=== PATIENT | male | born 1950 | race Caucasian/White ===

== ENCOUNTER 2019-03-20 11:00 | Inpatient (IN) | payer OTHER, MEDICARE ==
[~2019-03-20] VITALS: Ht 182.9 cm; Wt 102.3 kg
[~2019-03-20 11:00] MED LIST: ALEN70 PO; CLOP75 PO; Fish Oil Conc1000 MG PO; GLIP5 PO; LEVSOD25 PO; Lipitor80 MG PO; PANT40 PO; Prinivil10 MG PO; TAMS.4ER PO
[2019-03-20 12:16] LABS: BASOPHILS ABSOLUTE AUTO 0.06 K/mm3 (0.00-0.23); BASOPHILS PERCENT AUTO 0 % (0-2); EOSINOPHILS ABSOLUTE AUTO 0.19 K/mm3 (0.00-0.68); EOSINOPHILS PERCENT AUTO 1 % (0-6); Hemoglobin 12.3 g/dL (13.5-17.5); IMMATURE GRAN ABSOLUTE AUTO 0.06 K/mm3 (0.00-0.10); IMMATURE GRAN PERCENT AUTO 0 % (0-1); LYMPHOCYTES PERCENT AUTO 8 % (21-46); MONOCYTES ABSOLUTE AUTO 0.66 K/mm3 (0.16-1.47); MONOCYTES PERCENT AUTO 5 % (4-13); Mean Corpuscular HGB 29.8 pg (26.0-34.0); Mean Corpuscular HGB Conc 32.4 g/dL (31.5-36.5); Mean Corpuscular Volume 92 fL (80-100); Mean Platelet Volume 9.5 fL (9.1-12.4); NEUTROPHILS ABSOLUTE AUTO 11.28 K/mm3 (1.96-9.15); NEUTROPHILS PERCENT AUTO 85 % (41-73); Platelet Count 254 K/mm3 (150-400); RDW Coefficient Variation 14.6 % (11.7-14.2); RDW Standard Deviation 50.1 fL (35.1-46.3); Red Blood Cell Count 4.13 M/mm3 (4.30-5.90); White Blood Cell Count 13.35 K/mm3 (4.00-11.30)
[2019-03-20 12:34] LABS: Alanine Aminotransfer (ALT/SGP 17 U/L (12-78); Albumin, Blood 3.4 g/dL (3.4-5.0); Albumin/Globulin Ratio 0.8 (0.8-1.8); Alk Phos 95 U/L (50-136); Anion Gap 10 mmol/L (6-16); Aspartate Aminotrans (AST/SGOT 12 U/L (12-37); Bilirubin, Total 0.4 mg/dL (0.1-1.0); Blood Urea Nitrogen 29 mg/dL (8-24); Bun/Creatinine Ratio 31.9 (12.0-20.0); CO2, Blood 22 mmol/L (21-32); Calcium, Blood 9.4 mg/dL (8.5-10.1); Chloride, Blood 106 mmol/L (98-108); Creatinine, Blood 0.91 mg/dL (0.60-1.20); Globulin, Blood 4.4 g/dL (2.2-4.0); Glomerular Filtration Rate >60 (60-); Glucose, Blood 171 mg/dL (70-99); Sodium, Blood 138 mmol/L (136-145); Total Protein, Blood 7.8 g/dL (6.4-8.2)
[2019-03-20] MEDS ORDERED: GABA300 PO (13:51)
[2019-03-20] MEDS ORDERED: AMIT50 PO (13:52)
[2019-03-20] MEDS ORDERED: Flonase 0.05% N16 GM (13:52)
[2019-03-20] MEDS ORDERED: ASMANEX220 MC3 INH (13:53)
[2019-03-20] MEDS ORDERED: TRIA15CR3 TOP (13:54)
--- NOTE | 2019-03-20 17:47 | NUR ---
SHIFT SUMMARY 1550 PT ARRIVED FROM ER. PIVOT TRANSFERED TO BED FROM STRETCHER. ALERT AND ORIENTED X3. C/O 8/10 RIGHT LEG PAIN, MEDICATED WITH PRN PAIN MEDS. LUNG SOUNDS COARSE THROUGHOUT, SINUS TACHYCARDIA WITH PACs ON TELEMETRY, RATE 110s. NEUROPATHY TO BLE. 1+ PITTING EDEMA TO RIGHT LEG. RIGHT LEG REDNESS NOTED TO ROY AND FOOT. SCABS NOTED TO RIGHT ANTERIOR ROY, RIGHT LATERAL FOOT, AND TOP OF RIGHT 2ND TOE. ULCER ON BOTTOM OF RIGHT GREAT TOE DRAINING SEROSANGUINOUS, DR. THOMAS IN ROOM, PT TO GO FOR SURGERY TOMORROW. PT NPO AFTER MIDNIGHT, HOLDING PLAVIX AT THIS TIME. WILL CONTINUE TO MONITOR AND REPORT OFF TO FIREARMS SALES ASSOCIATE RN.
[2019-03-20 22:55] LABS: Source, Urine Catheter
[2019-03-20 22:58] LABS: Bilirubin, Urine Neg (Neg); Blood, Urine Neg (Neg); Glucose Qualitative, Urine Neg (Neg); Ketones, Urine 1+ (Neg); Leukocyte Esterase, Urine Neg (Neg); Nitrite, Urine Neg (Neg); Protein, Urine 2+ (Neg); Specific Gravity, Urine 1.015 (1.003-1.022); Urobilinogen, Urine NORM (Normal)
[2019-03-20 22:59] LABS: Color, Urine Yellow (P-Yellow)
[2019-03-20 23:00] LABS: Appearance, Urine Clear (Clear)
[2019-03-20 23:03] LABS: Bacteria Mod /hpf; Red Blood Cells, Urine 0-2 /hpf (0-2); Squamous Epithelial Cells Not Seen /hpf (Few); White Blood Cells, Urine 0-2 /hpf (0-5)
[2019-03-21 03:37] LABS: BASOPHILS ABSOLUTE AUTO 0.05 K/mm3 (0.00-0.23); BASOPHILS PERCENT AUTO 1 % (0-2); EOSINOPHILS ABSOLUTE AUTO 0.52 K/mm3 (0.00-0.68); EOSINOPHILS PERCENT AUTO 7 % (0-6); Hematocrit 32.9 % (37.0-53.0); Hemoglobin 10.5 g/dL (13.5-17.5); IMMATURE GRAN ABSOLUTE AUTO 0.05 K/mm3 (0.00-0.10); IMMATURE GRAN PERCENT AUTO 1 % (0-1); LYMPHOCYTES ABSOLUTE AUTO 0.91 K/mm3 (0.84-5.20); LYMPHOCYTES PERCENT AUTO 12 % (21-46); MONOCYTES ABSOLUTE AUTO 0.47 K/mm3 (0.16-1.47); MONOCYTES PERCENT AUTO 6 % (4-13); Mean Corpuscular HGB 29.9 pg (26.0-34.0); Mean Corpuscular HGB Conc 31.9 g/dL (31.5-36.5); Mean Corpuscular Volume 94 fL (80-100); Mean Platelet Volume 9.4 fL (9.1-12.4); NEUTROPHILS ABSOLUTE AUTO 5.85 K/mm3 (1.96-9.15); NEUTROPHILS PERCENT AUTO 75 % (41-73); Platelet Count 206 K/mm3 (150-400); RDW Coefficient Variation 14.6 % (11.7-14.2); RDW Standard Deviation 49.9 fL (35.1-46.3); Red Blood Cell Count 3.51 M/mm3 (4.30-5.90); White Blood Cell Count 7.85 K/mm3 (4.00-11.30)
[2019-03-21 03:51] LABS: International Normalized Ratio 0.95; Prothrombin Time Results 10.1 Sec (9.7-11.5)
[2019-03-21 03:58] LABS: Alanine Aminotransfer (ALT/SGP 19 U/L (12-78); Albumin, Blood 2.7 g/dL (3.4-5.0); Albumin/Globulin Ratio 0.8 (0.8-1.8); Alk Phos 74 U/L (50-136); Anion Gap 8 mmol/L (6-16); Aspartate Aminotrans (AST/SGOT 19 U/L (12-37); Bilirubin, Total 0.5 mg/dL (0.1-1.0); Blood Urea Nitrogen 19 mg/dL (8-24); Bun/Creatinine Ratio 25.3 (12.0-20.0); CO2, Blood 22 mmol/L (21-32); Calcium, Blood 8.5 mg/dL (8.5-10.1); Chloride, Blood 108 mmol/L (98-108); Creatinine, Blood 0.75 mg/dL (0.60-1.20); Globulin, Blood 3.6 g/dL (2.2-4.0); Glomerular Filtration Rate >60 (60-); Glucose, Blood 124 mg/dL (70-99); Magnesium, Blood 1.5 mg/dL (1.6-2.4); Potassium, Blood 3.5 mmol/L (3.5-5.5); Sodium, Blood 138 mmol/L (136-145); Total Protein, Blood 6.3 g/dL (6.4-8.2)
--- NOTE | 2019-03-21 06:45 | NUR ---
Shift Summary No acute events to note overnight. Pain managed with dilauded better than fentanyl or tordol per pt. Medicated x2 this shift per orders. Pt NPO at midnight per orders for I&D today. VSS. Alert and oriented. calls appropriately. calls appropriately to make needs known. Uses urinal independantly at bedside. Day RN dressed RLE wound, dressing remains CDI this shift. No acute declines noted, no events on tele, no changes from initial shift assessment. Will continue to monitor until report off to day rn.
--- NOTE | 2019-03-21 08:48 | NUR ---
AM NOTE. ASSUMED CARE OF PT APROX 0700, PT IS A&Ox4 AND CURRENTLY NBW ON THE R FOOT. PT HAS BEEN NPO FOR I&D AND POSS AMPUTATION ON THE RIGHT FOOT. PT HAS BEEN HYPERTENSIVE, PT MEDICATED FOR PAIN 9/10 PAIN IN HIS R FOOT AND BACK. PT'S R FOOT WRAPPED IN KRILIX, IT IS NOTED THERE IS BLOOD AND SEROSANGUINEOUS DRAINAGE, DRESSING IS CHANGED. PER THE PT AND HIS SISTER AT THE BEDSIDE THE REDNESS OF THE RIGHT FOOT AND LEFT ROY HAS GREATLY DECREASED FROM YESTERDAY. L/S COARSE T/O, PT IS CEDS WITH NO PLANS TO QUIT PER THE PT. THERE IS 1+ EDEMA NOTED TO THE PT'S BLE, PEDAL PULSES ARE FAINT BILATERALLY. PT IS VERY ANXIOUS ABOUT THIS PROCEDURE, EDUCATION AND COMFORT PROVIDED TO THE PT. CALL LIGHT IN REACH, BED IS LOCKED AND LOW WILL CONTINUE TO MONITOR.
--- NOTE | 2019-03-21 11:04 | NUR ---
History, Chart, Medications and Allergies reviewed before start of procedure.Lungs clear T/O to Auscultation. Patient confirms NPO status and agrees with scheduled surgery. PROVIDED OR 1 WITH 1200 SCHEDULED ZOSYN. REPORT TO RAMSEY CLAYTON RN IN OR 1. SISTER PHONE NUMBER TO FRON OF CHART FOR DR THOMAS. ALL BELONINGS LEFT IN PCU 13.
--- NOTE | 2019-03-21 11:25 | NUR ---
03/21/19 Seb5 Naomi Nguyen PT ON SCHEDULED ANTIBIOTICS
--- NOTE | 2019-03-21 17:39 | NUR ---
SHIFT SUMMARY. PT RETURNED FROM SURGERY AT 1230, PT'S POST OP VS STABLE. PT C/O OF SEVERE PAIN TO THE R LEG/FOOT, PT WAS MEDICATED PER EMAR. PT IS NWB ON THE R LEG. PER REPORT FROM THE PHARMACY SCHEDULER DRESSING IS TO BE CHANGED BY THE PROVIDER ONLY. PT HAS BEEN VOIDING USING THE URINAL IND IN BED. PT IS MEDICAL STATUS, REPORT WAS GIVEN TO RECEVING RN. CALL LIGHT IN REACH, BED IS LOCKED AND LOW WILL CONTINUE TO MONITOR UNTIL PT IS TRANSFERED TO MEDICAL FLOOR.
--- NOTE | 2019-03-21 19:28 | NUR ---
PT ARRIVED TO THE MEDIVCAL FLOOR FROM THE PCU AT 181, A/OX3, PLEASANT AND COOPERATIVE, THE PT WAS MEDICATED FOR PAIN PER HIS REQUEST ON ARRIVAL TO THE ROOM, THE PT APPEARS TO BE BREATHING EASILY ON RA, THE HAS A C/D/I DRESSING TO THR RIGHT LE, PT WAS ORIENTED TO THE ROOM LAYOUT AND CALL SYSTEM, CALL LIGHT IN REACH
[2019-03-22 02:19] LABS: BASOPHILS ABSOLUTE AUTO 0.02 K/mm3 (0.00-0.23); BASOPHILS PERCENT AUTO 0 % (0-2); EOSINOPHILS ABSOLUTE AUTO 0.03 K/mm3 (0.00-0.68); EOSINOPHILS PERCENT AUTO 0 % (0-6); Hemoglobin 9.6 g/dL (13.5-17.5); IMMATURE GRAN ABSOLUTE AUTO 0.05 K/mm3 (0.00-0.10); IMMATURE GRAN PERCENT AUTO 1 % (0-1); LYMPHOCYTES PERCENT AUTO 9 % (21-46); MONOCYTES ABSOLUTE AUTO 0.43 K/mm3 (0.16-1.47); MONOCYTES PERCENT AUTO 5 % (4-13); Mean Corpuscular HGB 30.2 pg (26.0-34.0); Mean Corpuscular Volume 94 fL (80-100); Mean Platelet Volume 9.5 fL (9.1-12.4); NEUTROPHILS ABSOLUTE AUTO 6.78 K/mm3 (1.96-9.15); NEUTROPHILS PERCENT AUTO 85 % (41-73); Platelet Count 191 K/mm3 (150-400); RDW Coefficient Variation 14.5 % (11.7-14.2); RDW Standard Deviation 50.4 fL (35.1-46.3); Red Blood Cell Count 3.18 M/mm3 (4.30-5.90); White Blood Cell Count 8.01 K/mm3 (4.00-11.30)
[2019-03-22 02:36] LABS: Alanine Aminotransfer (ALT/SGP 30 U/L (12-78); Albumin, Blood 2.6 g/dL (3.4-5.0); Albumin/Globulin Ratio 0.8 (0.8-1.8); Alk Phos 74 U/L (50-136); Anion Gap 7 mmol/L (6-16); Aspartate Aminotrans (AST/SGOT 32 U/L (12-37); Bilirubin, Total 0.1 mg/dL (0.1-1.0); Blood Urea Nitrogen 18 mg/dL (8-24); Bun/Creatinine Ratio 21.1 (12.0-20.0); CO2, Blood 22 mmol/L (21-32); Calcium, Blood 8.3 mg/dL (8.5-10.1); Chloride, Blood 108 mmol/L (98-108); Creatinine, Blood 0.85 mg/dL (0.60-1.20); Globulin, Blood 3.4 g/dL (2.2-4.0); Glomerular Filtration Rate >60 (60-); Glucose, Blood 149 mg/dL (70-99); Potassium, Blood 4.1 mmol/L (3.5-5.5); Sodium, Blood 137 mmol/L (136-145); Vancomycin, Trough 15.5 ug/mL (5.0-10.0)
--- NOTE | 2019-03-22 05:54 | NUR ---
SHIFT SUMMARY: PATIENT CONTINUES TO REPORT R FOOT PAIN 6-12/23 WITH A HISTORY OF NEUROPATHY AND INSOMNIA IT WAS NOTED THAT MANY HOME MEDS HAVE NOT BEEN ORDERED INCLUDING NEURONTIN, ELAVIL. АННА HICKS CAN INSPECTOR WAS NOTIFIED AND ORDERS FOR ALL HOME MEDS AND MELATONIN WERE OBTAINED AND GIVEN. PATIENT HAS HAD FAIR EFFECT FROM IV DILAUDID AND TORADOL PRN. PATIENT IS SLEEPING BETWEEN DOSES OF PRN PAIN MEDICATION, FAIR EFFECT FROM MELATONIN. VS ARE STABLE, DRSG TO RIGHT FOOT IS CLEAR DRY AND INTACT.
--- NOTE | 2019-03-22 18:06 | NUR ---
PATIENT IS ALERT AND ORIENTED AND COOPERATIVE WITH CARE. THE PROCEDURE NURSE CHANGED THE DRESSING ON HIS RLE TODAY. HE COMPLAINS OF PAIN ON HIS RIGHT ROY. IV FLUIDS AND IV ANTIBIOTICS WERE DC'D TODAY. HE WORKED WITH PT TODAY, HE CAN PIVOT ON HIS LEFT FOOT TO TRANSFER. 2PA WITH GAITBELT AND FWW. PATIENT NOTICED HE HAS BEEN SLEEEPING MOST OF THE AFTERNOON. IV TORADOL WAS GIVEN AROUND 1400. HIS VITAL ARE STABLE. HE IS AWAKE IN THE RECLINER FOR DINNER NOW. WILL CONTINUE TO MONITOR.
--- NOTE | 2019-03-23 07:43 | NUR ---
SHIFT SUMMARY: BP IS ELEVATED BUT PATIENT IS ASYMPTOMATIC, POSSIBLY RELATED TO PAIN. PAIN IS WELL CONTROLED WITH ORAL NORCO 1 TAB GIVEN TWICE, PATIENT SLEP THROUGH THE NIGHT. THIS AM PATIENT IS REPORTING A BURNING PAIN ON R ROY, ICE IS APPLIED AND AM DOSE OF NEURONTIN IS DUE SOON. PATIENT IS DOING WELL WITH TRANSFERS TO CHAIR AND ASSIST OF TWO, STAND AND PIVOT.
[2019-03-23] MEDS ORDERED: AMOCLA500 PO (11:32)
[2019-03-23] MEDS ORDERED: Docusate Sodiu1 EACH PO (11:34)
[2019-03-23] MEDS ORDERED: Humalog Mi100 UNIT/4 SC (11:35)
[2019-03-23] MEDS ORDERED: INSULANPEN SC (11:37)
[2019-03-23] MEDS ORDERED: Vsl#3 Capsule1 EACH PO (11:37)
--- NOTE | 2019-03-23 14:23 | NUR ---
PATIENT D/C'S VIA W/C TRANSPORT TO [facility]. REPORT CALLED TO NURSE BRITTANEY. PACKET GIVEN TO GOVERNMENT RELATIONS ANALYST. PATIENT DENIES ANY QUESTIONS OR CONCERNS.
== END 2019-03-23 14:22 | DRG 854 ==
LOC: ER 11:00 → PCU 15:17 → MEDS 15:17 → PCU 15:48 → MEDS 03-21 18:13
PROVIDERS: Emergency Medicine; Internal Medicine; Nurse Practitioner Acute Care; Podiatrist Foot & Ankle Surgery; ADMIT Internal Medicine
PROC: 0Y6P0Z0 Detachment at Right 1st Toe, Complete, Open Approach (ICD-10-PCS; principal; 2019-03-21 10:30)
DX: A41.9 Sepsis, unspecified organism (principal); E11.52 Type 2 diabetes mellitus with diabetic peripheral angiopathy with gangrene; I96 Gangrene, not elsewhere classified; L03.115 Cellulitis of right lower limb; E11.621 Type 2 diabetes mellitus with foot ulcer; L97.519 Non-pressure chronic ulcer of other part of right foot with unspecified severity; Z79.4 Long term (current) use of insulin; D63.8 Anemia in other chronic diseases classified elsewhere; I10 Essential (primary) hypertension; E03.9 Hypothyroidism, unspecified; K21.9 Gastro-esophageal reflux disease without esophagitis; E66.01 Morbid (severe) obesity due to excess calories; Z68.32 Body mass index [BMI] 32.0-32.9, adult; N40.0 Benign prostatic hyperplasia without lower urinary tract symptoms; Z66 Do not resuscitate
CPT/HCPCS: 36415; 73600; 73620; 80053; 80202; 81001; 82947; 83036; 83605; 83735; 83880; 85025; 85610; 85651; 86140; 87040; 87070; 87071; 87075; 87076; 87077; 87086; 87185; 87205; 88305; 90686; 93005; 93010; 94640; 94760; 96361; 96365; 96367; 96375; 96376; 97162; 97530; 99285-25; A9270-GY; G0008; J1100; J1170; J1885; J2185; J2250; J2405; J2543; J2704; J3010; J3370; J7030; J7050; J7120

== ENCOUNTER 2019-04-08 20:17 | Emergency (ER) | payer OTHER, MEDICARE ==
[~2019-04-08] VITALS: Ht 182.9 cm; Wt 104.3 kg
[~2019-04-08 20:17] MED LIST changes: +AMIT50 PO; +AMOCLA500 PO; +ASMANEX220 MC3 INH; +Docusate Sodiu1 EACH PO; +Flonase 0.05% N16 GM; +GABA300 PO; +Humalog Mi100 UNIT/4 SC; +INSULANPEN SC; +TRIA15CR3 TOP; +Vsl#3 Capsule1 EACH PO
[2019-04-08 20:53] LABS: BASOPHILS ABSOLUTE AUTO 0.11 K/mm3 (0.00-0.23); BASOPHILS PERCENT AUTO 1 % (0-2); EOSINOPHILS ABSOLUTE AUTO 0.41 K/mm3 (0.00-0.68); EOSINOPHILS PERCENT AUTO 4 % (0-6); Hematocrit 41.8 % (37.0-53.0); Hemoglobin 13.3 g/dL (13.5-17.5); IMMATURE GRAN ABSOLUTE AUTO 0.11 K/mm3 (0.00-0.10); IMMATURE GRAN PERCENT AUTO 1 % (0-1); LYMPHOCYTES ABSOLUTE AUTO 2.07 K/mm3 (0.84-5.20); LYMPHOCYTES PERCENT AUTO 19 % (21-46); MONOCYTES ABSOLUTE AUTO 0.61 K/mm3 (0.16-1.47); MONOCYTES PERCENT AUTO 6 % (4-13); Mean Corpuscular HGB 29.7 pg (26.0-34.0); Mean Corpuscular HGB Conc 31.8 g/dL (31.5-36.5); Mean Corpuscular Volume 93 fL (80-100); Mean Platelet Volume 9.9 fL (9.1-12.4); NEUTROPHILS ABSOLUTE AUTO 7.66 K/mm3 (1.96-9.15); NEUTROPHILS PERCENT AUTO 70 % (41-73); Platelet Count 270 K/mm3 (150-400); RDW Coefficient Variation 14.3 % (11.7-14.2); RDW Standard Deviation 49.2 fL (35.1-46.3); Red Blood Cell Count 4.48 M/mm3 (4.30-5.90); White Blood Cell Count 10.97 K/mm3 (4.00-11.30)
[2019-04-08 21:06] LABS: Alanine Aminotransfer (ALT/SGP 35 U/L (12-78); Albumin, Blood 4.1 g/dL (3.4-5.0); Albumin/Globulin Ratio 0.9 (0.8-1.8); Alk Phos 131 U/L (50-136); Anion Gap 9 mmol/L (6-16); Aspartate Aminotrans (AST/SGOT 25 U/L (12-37); Bilirubin, Total 0.2 mg/dL (0.1-1.0); Blood Urea Nitrogen 23 mg/dL (8-24); Bun/Creatinine Ratio 23.7 (12.0-20.0); CO2, Blood 20 mmol/L (21-32); Calcium, Blood 8.9 mg/dL (8.5-10.1); Chloride, Blood 110 mmol/L (98-108); Creatinine, Blood 0.97 mg/dL (0.60-1.20); Globulin, Blood 4.4 g/dL (2.2-4.0); Glomerular Filtration Rate >60 (60-); Glucose, Blood 104 mg/dL (70-99); Potassium, Blood 4.6 mmol/L (3.5-5.5); Sodium, Blood 139 mmol/L (136-145); Total Protein, Blood 8.5 g/dL (6.4-8.2)
[2019-04-08] MEDS ORDERED: CEPH500 PO (21:36)
== END 2019-04-08 22:39 | disposition home or self-care (01) ==
LOC: ER 20:17
PROVIDERS: Emergency Medicine
DX: L97.519 Non-pressure chronic ulcer of other part of right foot with unspecified severity (principal); I99.8 Other disorder of circulatory system; E11.9 Type 2 diabetes mellitus without complications; I10 Essential (primary) hypertension; Z89.411 Acquired absence of right great toe; Z91.14 Patient's other noncompliance with medication regimen; Z79.899 Other long term (current) drug therapy; Z79.02 Long term (current) use of antithrombotics/antiplatelets; Z79.4 Long term (current) use of insulin
CPT/HCPCS: 36415; 80053; 85025; 99283; A9270

== ENCOUNTER 2019-07-17 12:22 | Inpatient (IN) | payer OTHER, MEDICARE ==
[~2019-07-17] VITALS: Ht 185.4 cm; Wt 110.4 kg
[~2019-07-17 12:22] MED LIST changes: -ASMANEX220 MC3 INH; +CEPH500 PO
[2019-07-17] MEDS ORDERED: Calcium Carbon650 MG PO (12:45)
[2019-07-17] MEDS ORDERED: HYDRA25 PO (12:49)
[2019-07-17] MEDS ORDERED: ZOLOFT25 MG PO (12:49)
[2019-07-17] MEDS ORDERED: METO50ER PO (12:49)
[2019-07-17] MEDS ORDERED: THERA-D2000 UNIT PO (12:50)
[2019-07-17 13:11] LABS: BASOPHILS ABSOLUTE AUTO 0.07 K/mm3 (0.00-0.23); BASOPHILS PERCENT AUTO 1 % (0-2); EOSINOPHILS ABSOLUTE AUTO 0.52 K/mm3 (0.00-0.68); EOSINOPHILS PERCENT AUTO 7 % (0-6); Hematocrit 27.2 % (37.0-53.0); Hemoglobin 8.4 g/dL (13.5-17.5); IMMATURE GRAN PERCENT AUTO 1 % (0-1); LYMPHOCYTES PERCENT AUTO 17 % (21-46); MONOCYTES PERCENT AUTO 5 % (4-13); Mean Corpuscular HGB 30.7 pg (26.0-34.0); Mean Corpuscular HGB Conc 30.9 g/dL (31.5-36.5); Mean Corpuscular Volume 99 fL (80-100); Mean Platelet Volume 10.4 fL (9.1-12.4); NEUTROPHILS ABSOLUTE AUTO 5.09 K/mm3 (1.96-9.15); NEUTROPHILS PERCENT AUTO 68 % (41-73); Platelet Count 243 K/mm3 (150-400); RDW Coefficient Variation 15.5 % (11.7-14.2); RDW Standard Deviation 55.5 fL (35.1-46.3); Red Blood Cell Count 2.74 M/mm3 (4.30-5.90); White Blood Cell Count 7.48 K/mm3 (4.00-11.30)
[2019-07-17 13:29] LABS: Alanine Aminotransfer (ALT/SGP 63 U/L (12-78); Albumin, Blood 3.6 g/dL (3.4-5.0); Alk Phos 100 U/L (50-136); Anion Gap 8 mmol/L (6-16); Aspartate Aminotrans (AST/SGOT 35 U/L (12-37); Bilirubin, Total <0.1 mg/dL (0.1-1.0); Blood Urea Nitrogen 51 mg/dL (8-24); Bun/Creatinine Ratio 26.7 (12.0-20.0); CO2, Blood 20 mmol/L (21-32); Calcium, Blood 9.2 mg/dL (8.5-10.1); Chloride, Blood 107 mmol/L (98-108); Creatinine, Blood 1.91 mg/dL (0.60-1.20); Globulin, Blood 3.6 g/dL (2.2-4.0); Glomerular Filtration Rate 37 (60-); Glucose, Blood 131 mg/dL (70-99); Potassium, Blood 5.1 mmol/L (3.5-5.5); Sodium, Blood 135 mmol/L (136-145); Total Protein, Blood 7.2 g/dL (6.4-8.2)
[2019-07-17 14:40] LABS: Source, Urine Clean Catch
[2019-07-17 14:44] LABS: Bilirubin, Urine Neg (Neg); Blood, Urine Neg (Neg); Glucose Qualitative, Urine Neg (Neg); Ketones, Urine Neg (Neg); Leukocyte Esterase, Urine Neg (Neg); Nitrite, Urine Neg (Neg); Protein, Urine Neg (Neg); Urobilinogen, Urine NORM (Normal)
[2019-07-17 14:59] LABS: Appearance, Urine Clear (Clear); Color, Urine Yellow (P-Yellow)
[2019-07-17] MEDS ORDERED: ASMANEX HFA13 G2 INH (17:34)
[2019-07-17] MEDS ORDERED: HYDHCL25 PO (17:35)
[2019-07-17] MEDS ORDERED: ANTI-ITCH LOTI222 ML TOP (17:36)
[2019-07-17 19:02] LABS: Hematocrit 26.9 % (37.0-53.0); Hemoglobin 8.2 g/dL (13.5-17.5)
--- NOTE | 2019-07-18 01:26 | NUR ---
68 YR OLD MALE ADMITTED TO THE FLOOR FROM THE ED EARLIER WITH DX OF AKD. HX DM WITH RIGHT GREAT TOE AMPUTATION AND 2ND TOE OF RIGHT FOOT SWOLLEN AND OPEN. NO NOTED DRAINAGE. BANDAID APPLIED TO AREA. WEAK, AMBULATES WITH WALKER. ALERT AND ORINETED. WAS ANXIOUS WHEN HE HAD MISPLACED HIS TELEPHONE AND IT WAS FOUND IN LINEN FROM TRANSFER GURSTAPLETON. IVF OF LR INFUSING - SEE MAR FOR DETAILS. VOICED PAIN OF BACK AND NECK, DRYWALL FOREMAN NOTIFIED AND ONE TIME DOSE OF ULTRAM GIVEN. NO COMPLAINTS AT THIS TIME. ORIENTED TO CALL LIGHT USE. CALL LIGHT IN REACH.
--- NOTE | 2019-07-18 05:08 | NUR ---
PT AWAKE AT INTERVALS. IVF OF LR CONTINUES TO INFUSE ORDERED. PT VOICED HX TAKING NEURONTIN 900 MG PO TID. MD NOTIFIED AND MED ORDERED. SEE MAR FOR DETAILS. CALL LIGHT IN REACH.
[2019-07-18 06:01] LABS: Hematocrit 25.9 % (37.0-53.0); Hemoglobin 7.8 g/dL (13.5-17.5); Mean Corpuscular HGB 29.7 pg (26.0-34.0); Mean Corpuscular HGB Conc 30.1 g/dL (31.5-36.5); Mean Corpuscular Volume 99 fL (80-100); Mean Platelet Volume 10.4 fL (9.1-12.4); Platelet Count 221 K/mm3 (150-400); RDW Standard Deviation 54.4 fL (35.1-46.3); Red Blood Cell Count 2.63 M/mm3 (4.30-5.90); White Blood Cell Count 6.53 K/mm3 (4.00-11.30)
[2019-07-18 06:21] LABS: Percent Saturation 19.5 % (20.0-50.0)
[2019-07-18 06:22] LABS: Anion Gap 6 mmol/L (6-16); Blood Urea Nitrogen 31 mg/dL (8-24); CO2, Blood 17 mmol/L (21-32); Calcium, Blood 8.3 mg/dL (8.5-10.1); Chloride, Blood 115 mmol/L (98-108); Creatinine, Blood 1.07 mg/dL (0.60-1.20); Glomerular Filtration Rate >60 (60-); Glucose, Blood 145 mg/dL (70-99); Potassium, Blood 5.7 mmol/L (3.5-5.5); Sodium, Blood 138 mmol/L (136-145)
[2019-07-18 13:13] LABS: Hematocrit 27.2 % (37.0-53.0); Hemoglobin 8.4 g/dL (13.5-17.5); Mean Corpuscular HGB 30.1 pg (26.0-34.0); Mean Corpuscular HGB Conc 30.9 g/dL (31.5-36.5); Mean Corpuscular Volume 98 fL (80-100); Platelet Count 228 K/mm3 (150-400); RDW Coefficient Variation 15.1 % (11.7-14.2); RDW Standard Deviation 53.9 fL (35.1-46.3); Red Blood Cell Count 2.79 M/mm3 (4.30-5.90); White Blood Cell Count 7.85 K/mm3 (4.00-11.30)
--- NOTE | 2019-07-18 19:10 | NUR ---
PT. LYING QUIETLY AT THIS TIME NO COMPLAINTS AT THIS TIME. PUT EGGCRATE ON PT'S BED BECAUSE HE SAID IT MADE HIS BACK HURT. PT. SAID THE PAIN MED WE ARE GIVING HIS DOESN'T WORK AND ITS A PLACEBO. WHEN ASKED WHAT HE TAKES AT HOME HE SAID TYLENOL BUT HE'S IN THE HOSPITAL NOW AND WANTS SOME GOOD PAIN MEDS, WHEN ASKED WHAT HE WANTED HE STATED"MORPHINE".
[2019-07-18 20:22] LABS: Hematocrit 28.3 % (37.0-53.0); Hemoglobin 8.6 g/dL (13.5-17.5); Mean Corpuscular HGB 30.3 pg (26.0-34.0); Mean Corpuscular HGB Conc 30.4 g/dL (31.5-36.5); Mean Corpuscular Volume 100 fL (80-100); Mean Platelet Volume 9.9 fL (9.1-12.4); Platelet Count 227 K/mm3 (150-400); RDW Standard Deviation 54.5 fL (35.1-46.3); Red Blood Cell Count 2.84 M/mm3 (4.30-5.90); White Blood Cell Count 7.23 K/mm3 (4.00-11.30)
--- NOTE | 2019-07-19 05:01 | NUR ---
SHIFT SUMMARY PT HAS HAD NO ACUTE CHANGES THIS SHIFT, ONLY COMPLAINT IS ABOUT CLEARS DIET, VSS, PT SLEEPING AT THIS TIME, CALL LIGHT IN REACH, WILL CONT TO MONITOR UNTIL REPORT GIVEN TO DAY RN.
[2019-07-19 05:15] LABS: BASOPHILS ABSOLUTE AUTO 0.05 K/mm3 (0.00-0.23); BASOPHILS PERCENT AUTO 1 % (0-2); EOSINOPHILS ABSOLUTE AUTO 0.51 K/mm3 (0.00-0.68); EOSINOPHILS PERCENT AUTO 8 % (0-6); Hematocrit 26.4 % (37.0-53.0); IMMATURE GRAN ABSOLUTE AUTO 0.06 K/mm3 (0.00-0.10); IMMATURE GRAN PERCENT AUTO 1 % (0-1); LYMPHOCYTES ABSOLUTE AUTO 1.72 K/mm3 (0.84-5.20); LYMPHOCYTES PERCENT AUTO 28 % (21-46); MONOCYTES ABSOLUTE AUTO 0.41 K/mm3 (0.16-1.47); MONOCYTES PERCENT AUTO 7 % (4-13); Mean Corpuscular HGB 29.9 pg (26.0-34.0); Mean Corpuscular HGB Conc 30.3 g/dL (31.5-36.5); Mean Corpuscular Volume 99 fL (80-100); Mean Platelet Volume 10.2 fL (9.1-12.4); NEUTROPHILS ABSOLUTE AUTO 3.37 K/mm3 (1.96-9.15); NEUTROPHILS PERCENT AUTO 55 % (41-73); Platelet Count 204 K/mm3 (150-400); RDW Coefficient Variation 15.1 % (11.7-14.2); RDW Standard Deviation 54.1 fL (35.1-46.3); Red Blood Cell Count 2.68 M/mm3 (4.30-5.90); White Blood Cell Count 6.12 K/mm3 (4.00-11.30)
[2019-07-19 05:43] LABS: Anion Gap 5 mmol/L (6-16); Blood Urea Nitrogen 22 mg/dL (8-24); Bun/Creatinine Ratio 23.6 (12.0-20.0); CO2, Blood 19 mmol/L (21-32); Calcium, Blood 8.7 mg/dL (8.5-10.1); Chloride, Blood 114 mmol/L (98-108); Creatinine, Blood 0.93 mg/dL (0.60-1.20); Glomerular Filtration Rate >60 (60-); Glucose, Blood 102 mg/dL (70-99); Sodium, Blood 138 mmol/L (136-145)
[2019-07-19 05:45] LABS: Potassium, Blood 6.3 mmol/L (3.5-5.5)
[2019-07-19 10:28] LABS: Anion Gap 4 mmol/L (6-16); Blood Urea Nitrogen 20 mg/dL (8-24); Bun/Creatinine Ratio 22.9 (12.0-20.0); CO2, Blood 21 mmol/L (21-32); Calcium, Blood 8.8 mg/dL (8.5-10.1); Chloride, Blood 112 mmol/L (98-108); Creatinine, Blood 0.87 mg/dL (0.60-1.20); Glomerular Filtration Rate >60 (60-); Glucose, Blood 152 mg/dL (70-99); Potassium, Blood 5.3 mmol/L (3.5-5.5); Sodium, Blood 137 mmol/L (136-145)
--- NOTE | 2019-07-19 11:32 | NUR ---
07/19/19 1132 Neisha Horan History, Chart, Medications and Allergies reviewed before start of procedure. PATIENT CONFIRMS NPO STATUS AND AGREES WITH SCHEDULED PROCEDURE. MONITOR INTACT WITH CONTINUOUS PULSE OXIMETRY AND INTERMITTENT BP. O2 VIA N/C INTACT THROUGHOUT SEDATION/PROCEDURE. 3-LEAD EKG REVIEWED WITH PHYSICIAN PRIOR TO START OF PROCEDURE. Bite Block Placed. PATIENT DETERMINED TO BE ASA APPROPRIATE FOR PROPOFOL SEDATION PRIOR TO START OF PROCEDURE BY DR. TRIPLETT.
--- NOTE | 2019-07-19 12:23 | NUR ---
"DAY SURGERY RN | REPORT TO JOSEPH RING AT [id number]"
--- NOTE | 2019-07-19 17:35 | NUR ---
SUMMARY PT SITTING UP IN BED WATCHING TV, PT HAD AN UPPER ENDOSCOPY TODAY, MELISSA WELL, PT INDEPENDENT IN THE ROOM, MED PER EMAR FOR C/O PAIN, VSS, HOPEFUL TO DC HOME IN AM, WILL CONT TO MONITOR
[2019-07-20 05:56] LABS: BASOPHILS ABSOLUTE AUTO 0.05 K/mm3 (0.00-0.23); BASOPHILS PERCENT AUTO 1 % (0-2); EOSINOPHILS ABSOLUTE AUTO 0.53 K/mm3 (0.00-0.68); EOSINOPHILS PERCENT AUTO 9 % (0-6); Hematocrit 27.1 % (37.0-53.0); Hemoglobin 8.4 g/dL (13.5-17.5); IMMATURE GRAN ABSOLUTE AUTO 0.07 K/mm3 (0.00-0.10); IMMATURE GRAN PERCENT AUTO 1 % (0-1); LYMPHOCYTES ABSOLUTE AUTO 1.82 K/mm3 (0.84-5.20); LYMPHOCYTES PERCENT AUTO 30 % (21-46); MONOCYTES ABSOLUTE AUTO 0.34 K/mm3 (0.16-1.47); MONOCYTES PERCENT AUTO 6 % (4-13); Mean Corpuscular HGB 29.9 pg (26.0-34.0); Mean Platelet Volume 10.3 fL (9.1-12.4); NEUTROPHILS ABSOLUTE AUTO 3.33 K/mm3 (1.96-9.15); NEUTROPHILS PERCENT AUTO 54 % (41-73); Platelet Count 205 K/mm3 (150-400); RDW Coefficient Variation 14.6 % (11.7-14.2); RDW Standard Deviation 50.7 fL (35.1-46.3); Red Blood Cell Count 2.81 M/mm3 (4.30-5.90); White Blood Cell Count 6.14 K/mm3 (4.00-11.30)
[2019-07-20 05:57] LABS: Mean Corpuscular Volume 96 fL (80-100)
--- NOTE | 2019-07-20 06:21 | NUR ---
SHIFT SUMMARY PT HAS HAD NO ACUTE CHANGES THIS SHIFT, MEDICATED 2X FOR PAIN, NO OTHER C/O ANY KIND, PT SLEEPING AT THIS TIME, CALL LIGHT IN REACH, WILL CONT TO MONITOR UNTIL REPORT GIVEN TO DAY RN
[2019-07-20 06:24] LABS: Anion Gap 5 mmol/L (6-16); Blood Urea Nitrogen 23 mg/dL (8-24); Bun/Creatinine Ratio 23.4 (12.0-20.0); CO2, Blood 21 mmol/L (21-32); Chloride, Blood 111 mmol/L (98-108); Creatinine, Blood 0.98 mg/dL (0.60-1.20); Glomerular Filtration Rate >60 (60-); Glucose, Blood 120 mg/dL (70-99); Sodium, Blood 137 mmol/L (136-145)
[2019-07-20 11:59] LABS: Anion Gap 7 mmol/L (6-16); Blood Urea Nitrogen 26 mg/dL (8-24); Bun/Creatinine Ratio 23.2 (12.0-20.0); CO2, Blood 20 mmol/L (21-32); Calcium, Blood 9.3 mg/dL (8.5-10.1); Chloride, Blood 110 mmol/L (98-108); Creatinine, Blood 1.12 mg/dL (0.60-1.20); Glomerular Filtration Rate >60 (60-); Glucose, Blood 138 mg/dL (70-99); Potassium, Blood 5.7 mmol/L (3.5-5.5); Sodium, Blood 137 mmol/L (136-145)
--- NOTE | 2019-07-20 17:26 | NUR ---
SUMMARY PT SITTING UP IN BED WATCHING TV, PT HAS BEEN PLEASANT AND COOPERATIVE WITH CARE T/O THE DAY, INDEPENDENT IN THE ROOM, NO S/S GI BLEEDING, MED PER EMAR FOR PAIN, VSS, NO ACUTE CHANGES, WILL CONT TO MONITOR
--- NOTE | 2019-07-21 04:37 | NUR ---
SHIFT SUMMARY PT HAS HAD NO ACUTE CHANGES THIS SHIFT, MEDICATED PER MAR FOR PAIN, PT AGAIN COMPLAINING THAT HE NEEDED MORE PAIN MEDS, EXPRESSED THAT HE DOESN'T UNDERSTAND "THIS WAS ON DRUGS", ALSO STATED THAT HE HAS WAS PLACED ON MORPHINE SEVERAL TIMES DURING [facility] AD[facility] AND STATES THAT HE IS "STILL ADDICTED" AND THAT AFTER 30 YEARS "I STILL CRAVE IT." PT WAS UP WATCHING TV & PLAYING ON CELL PHONE T/O NIGHT AND EXPRESSED THAT THE PAIN MEDS WEREN'T HELPING HIM SLEEP, IF PT IS NOT DC'D TODAY-SOMETHING FOR SLEEP WLD BE HELPFUL. PT SITTING AT BEDSIDE PLAYING ON CELLPHONE, CALL LIGHT IN REACH, WILL CONT TO MONITOR UNTIL REPORT GIVEN TO DAY RN.
[2019-07-21 06:42] LABS: Anion Gap 8 mmol/L (6-16); Blood Urea Nitrogen 36 mg/dL (8-24); CO2, Blood 22 mmol/L (21-32); Calcium, Blood 8.9 mg/dL (8.5-10.1); Chloride, Blood 108 mmol/L (98-108); Creatinine, Blood 1.16 mg/dL (0.60-1.20); Glomerular Filtration Rate >60 (60-); Glucose, Blood 127 mg/dL (70-99); Potassium, Blood 4.8 mmol/L (3.5-5.5); Sodium, Blood 138 mmol/L (136-145)
--- NOTE | 2019-07-21 07:44 | NUR ---
FALLS BACK TO SLEEP EASILY AFTER EVAL AND V.S.
[2019-07-21] MEDS ORDERED: PANT20 PO (11:15)
--- NOTE | 2019-07-21 12:12 | NUR ---
REVIEW D'C W/PATIENT. HAS F/U APPT W/DARIA GUERRERO ON 07/27/19 AND IS AWARE NEEDS TO KEEP. GIVEN RX. FOR LAB WORK ON TUESDAY. AWARE HAS NEW MED FAXED TO [facility] FOR INSURANCE CLAIMS EXAMINER FOR STOMACH. ANSWER ALL QUESTIONS. WILL PROVIDE W/C RIDE WHEN RIDEGETS HERE.
== END 2019-07-21 13:11 | disposition home or self-care (01) | DRG 683 ==
LOC: ER 12:22 → ERHOLD 16:27 → MEDS 16:27 → ENPENDDIS 07-21 11:00 → MEDS 07-21 13:11
PROVIDERS: Emergency Medicine; Hospitalist; Internal Medicine Gastroenterology; ADMIT Internal Medicine
PROC: 0DJ08ZZ Inspection of Upper Intestinal Tract, Via Natural or Artificial Opening Endoscopic (ICD-10-PCS; principal; 2019-07-19 11:00)
DX: N17.9 Acute kidney failure, unspecified (principal); D62 Acute posthemorrhagic anemia; K92.2 Gastrointestinal hemorrhage, unspecified; K29.70 Gastritis, unspecified, without bleeding; Z66 Do not resuscitate; E87.5 Hyperkalemia; I10 Essential (primary) hypertension; E03.9 Hypothyroidism, unspecified; K21.9 Gastro-esophageal reflux disease without esophagitis; E11.42 Type 2 diabetes mellitus with diabetic polyneuropathy; F17.210 Nicotine dependence, cigarettes, uncomplicated; Z95.810 Presence of automatic (implantable) cardiac defibrillator; Z79.4 Long term (current) use of insulin; D63.8 Anemia in other chronic diseases classified elsewhere; E66.01 Morbid (severe) obesity due to excess calories; N40.0 Benign prostatic hyperplasia without lower urinary tract symptoms; I25.10 Atherosclerotic heart disease of native coronary artery without angina pectoris; K27.9 Peptic ulcer, site unspecified, unspecified as acute or chronic, without hemorrhage or perforation
CPT/HCPCS: 36415; 74176; 80048; 80053; 81003; 82728; 82947; 83540; 83550; 83690; 84443; 85014; 85018; 85025; 85027; 86850; 86900; 86901; 93005; 93010; 96361; 96374; 99285-25; A9270; A9270-GY; C9113; J1815; J2704; J7030; J7120

== ENCOUNTER 2020-02-20 11:58 | Inpatient (IN) | payer OTHER, MEDICARE ==
[~2020-02-20] VITALS: Ht 182.9 cm; Wt 98.4 kg
[~2020-02-20 11:58] MED LIST changes: +ANTI-ITCH LOTI222 ML TOP; +ASMANEX HFA13 G2 INH; +Calcium Carbon650 MG PO; +HYDHCL25 PO; +HYDRA25 PO; +METO50ER PO; +PANT20 PO; +THERA-D2000 UNIT PO; +ZOLOFT25 MG PO
[2020-02-20 12:53] LABS: BASOPHILS ABSOLUTE AUTO 0.05 K/mm3 (0.00-0.23); BASOPHILS PERCENT AUTO 1 % (0-2); EOSINOPHILS ABSOLUTE AUTO 0.09 K/mm3 (0.00-0.68); EOSINOPHILS PERCENT AUTO 1 % (0-6); Hematocrit 27.8 % (37.0-53.0); Hemoglobin 8.3 g/dL (13.5-17.5); IMMATURE GRAN ABSOLUTE AUTO 0.06 K/mm3 (0.00-0.10); IMMATURE GRAN PERCENT AUTO 1 % (0-1); LYMPHOCYTES ABSOLUTE AUTO 1.23 K/mm3 (0.84-5.20); LYMPHOCYTES PERCENT AUTO 13 % (21-46); MONOCYTES ABSOLUTE AUTO 0.61 K/mm3 (0.16-1.47); MONOCYTES PERCENT AUTO 6 % (4-13); Mean Corpuscular HGB 28.4 pg (26.0-34.0); Mean Corpuscular HGB Conc 29.9 g/dL (31.5-36.5); Mean Corpuscular Volume 95 fL (80-100); Mean Platelet Volume 9.5 fL (9.1-12.4); NEUTROPHILS ABSOLUTE AUTO 7.44 K/mm3 (1.96-9.15); NEUTROPHILS PERCENT AUTO 79 % (41-73); Platelet Count 270 K/mm3 (150-400); RDW Coefficient Variation 14.4 % (11.7-14.2); RDW Standard Deviation 49.9 fL (35.1-46.3); Red Blood Cell Count 2.92 M/mm3 (4.30-5.90); White Blood Cell Count 9.48 K/mm3 (4.00-11.30)
[2020-02-20 13:32] LABS: Alanine Aminotransfer (ALT/SGP 47 U/L (12-78); Albumin, Blood 3.2 g/dL (3.4-5.0); Albumin/Globulin Ratio 0.9 (0.8-1.8); Alk Phos 107 U/L (50-136); Anion Gap 6 mmol/L (6-16); Aspartate Aminotrans (AST/SGOT 78 U/L (12-37); Bilirubin, Total 0.2 mg/dL (0.1-1.0); Blood Urea Nitrogen 15 mg/dL (8-24); Bun/Creatinine Ratio 23.4 (12.0-20.0); CO2, Blood 23 mmol/L (21-32); Calcium, Blood 10.4 mg/dL (8.5-10.1); Chloride, Blood 106 mmol/L (98-108); Creatinine, Blood 0.64 mg/dL (0.60-1.20); Globulin, Blood 3.5 g/dL (2.2-4.0); Glomerular Filtration Rate >60 (60-); Glucose, Blood 174 mg/dL (70-99); Potassium, Blood 4.3 mmol/L (3.5-5.5); Sodium, Blood 135 mmol/L (136-145); Total Protein, Blood 6.7 g/dL (6.4-8.2)
[2020-02-20] MEDS ORDERED: Vitamin D2000 UNIT PO (14:26)
[2020-02-20] MEDS ORDERED: TAMS.4ER PO (14:26)
[2020-02-20] MEDS ORDERED: GABA300 PO (14:26)
[2020-02-20] MEDS ORDERED: CLOP75 PO (14:26)
[2020-02-20] MEDS ORDERED: HYDHCL25 PO (14:27)
[2020-02-20] MEDS ORDERED: SERT50 PO (14:27)
[2020-02-20] MEDS ORDERED: AMIT50 PO (14:27)
[2020-02-20] MEDS ORDERED: LEVSOD25 PO (14:27)
[2020-02-20] MEDS ORDERED: ATOR40TA PO (14:28)
[2020-02-20] MEDS ORDERED: ASMANEX HFA13 G4 INH (14:28)
[2020-02-20] MEDS ORDERED: CALCIUM CARBON650 MG PO (14:29)
[2020-02-20] MEDS ORDERED: BASAGLAR K100 UNIT/1 SC (14:29)
[2020-02-20] MEDS ORDERED: METO50ER PO (14:29)
[2020-02-20] MEDS ORDERED: PANT20 PO (14:29)
--- NOTE | 2020-02-20 15:14 | NUR ---
Echocardiogramusing 0.65ml of Definity contrast performed.
--- NOTE | 2020-02-20 18:32 | NUR ---
SHIFT SUMMARY PT WAS ADMITTED TO ICU 2 AT 1705 AFTER GOING TO [facility]. RIGHT RADIAL ACCESS WITH TR BAND INPLACE AND 12ML OF AIR. PT C/O CP WITH RADIATION TO LEFT ARM, 4/10 UPON ARRIVAL. NITRO GTT TIRATED AND PT RATES CP NOW 2/10. PT WAS ALSO C/O GENERALIZED BODY PAIN WITH RATING 8/10. PRN PAIN MEDS GIVEN WITH MINIMAL RELIEF. HEPARIN GTT RESTARTED PER PHARMACY DOSING, SEE EMAR. MONITOR SHOWS SINUS TACH, PT DOES HAVE AN OLD AICD IN PLACE TO LEFT CHEST. VITALS HAVE BEEN STABLE SINCE ARRIVAL. PT DID INFORM HIS SISTER THAT HE WILL BE TRANSFERING TO [place] IN [facility] IF BED AVAILABLE.
--- NOTE | 2020-02-20 19:19 | NUR ---
TRANSFER OF CARE REPORT CALLED TO NAYELY AT [facility]. REPORT GIVEN TO EMS. ALL BELONGINGS WERE GATHERED AND GIVEN TO PT.
== END 2020-02-20 19:20 | disposition short-term general hospital (02) | DRG 282 ==
LOC: ER 11:58 → ICUW 15:19 → ICUE 16:31
PROVIDERS: Emergency Medicine; ADMIT Family Medicine
PROC: 4A023N7 Measurement of Cardiac Sampling and Pressure, Left Heart, Percutaneous Approach (ICD-10-PCS; principal; 2020-02-20)
PROC: B2111ZZ Fluoroscopy of Multiple Coronary Arteries using Low Osmolar Contrast (ICD-10-PCS; 2020-02-20)
DX: I21.4 Non-ST elevation (NSTEMI) myocardial infarction (principal); I10 Essential (primary) hypertension; I25.10 Atherosclerotic heart disease of native coronary artery without angina pectoris; E11.40 Type 2 diabetes mellitus with diabetic neuropathy, unspecified; M81.0 Age-related osteoporosis without current pathological fracture; E11.51 Type 2 diabetes mellitus with diabetic peripheral angiopathy without gangrene; K21.9 Gastro-esophageal reflux disease without esophagitis; E03.9 Hypothyroidism, unspecified; Z98.1 Arthrodesis status; J44.9 Chronic obstructive pulmonary disease, unspecified; Z79.02 Long term (current) use of antithrombotics/antiplatelets; Z79.4 Long term (current) use of insulin; F17.210 Nicotine dependence, cigarettes, uncomplicated; F32.9 Major depressive disorder, single episode, unspecified; I25.2 Old myocardial infarction; E66.01 Morbid (severe) obesity due to excess calories; Z68.34 Body mass index [BMI] 34.0-34.9, adult; Z86.711 Personal history of pulmonary embolism; Z66 Do not resuscitate; Z89.411 Acquired absence of right great toe; Z20.828 Contact with and (suspected) exposure to other viral communicable diseases; Z96.653 Presence of artificial knee joint, bilateral; I25.5 Ischemic cardiomyopathy; E11.621 Type 2 diabetes mellitus with foot ulcer; D63.8 Anemia in other chronic diseases classified elsewhere; L97.511 Non-pressure chronic ulcer of other part of right foot limited to breakdown of skin
CPT/HCPCS: 36415; 71046; 76937; 80053; 82947; 84484; 85025; 85347; 93005; 93010; 93454; 96365; 96368; 96375; 99152; 99153; 99285-25; A9270; A9270-GY; C1769; C1887; C1894; C8929; J1644; J2250; J2270; J2405; J3010; J7030; J7050; Q2038; Q9957; Q9967; U0003

== ENCOUNTER 2020-03-25 10:59 | Inpatient (IN) | payer OTHER, MEDICARE ==
[~2020-03-25] VITALS: Ht 182.9 cm; Wt 93.5 kg
[~2020-03-25 10:59] MED LIST changes: +CALCIUM CARBON650 MG PO
[2020-03-25] MEDS ORDERED: AMLO10 PO (11:39)
[2020-03-25] MEDS ORDERED: BASAGLAR K100 UNIT/1 (11:40)
[2020-03-25] MEDS ORDERED: FURO40 PO (11:40)
[2020-03-25 11:41] LABS: BASOPHILS ABSOLUTE AUTO 0.03 K/mm3 (0.00-0.23); BASOPHILS PERCENT AUTO 0 % (0-2); EOSINOPHILS ABSOLUTE AUTO 0.63 K/mm3 (0.00-0.68); EOSINOPHILS PERCENT AUTO 6 % (0-6); Hematocrit 28.9 % (37.0-53.0); Hemoglobin 8.8 g/dL (13.5-17.5); IMMATURE GRAN ABSOLUTE AUTO 0.05 K/mm3 (0.00-0.10); IMMATURE GRAN PERCENT AUTO 1 % (0-1); LYMPHOCYTES ABSOLUTE AUTO 0.93 K/mm3 (0.84-5.20); LYMPHOCYTES PERCENT AUTO 9 % (21-46); MONOCYTES ABSOLUTE AUTO 0.53 K/mm3 (0.16-1.47); MONOCYTES PERCENT AUTO 5 % (4-13); Mean Corpuscular HGB 27.9 pg (26.0-34.0); Mean Corpuscular HGB Conc 30.4 g/dL (31.5-36.5); Mean Corpuscular Volume 92 fL (80-100); Mean Platelet Volume 10.5 fL (9.1-12.4); NEUTROPHILS ABSOLUTE AUTO 8.78 K/mm3 (1.96-9.15); NEUTROPHILS PERCENT AUTO 80 % (41-73); Platelet Count 189 K/mm3 (150-400); RDW Coefficient Variation 16.4 % (11.7-14.2); RDW Standard Deviation 55.3 fL (35.1-46.3); Red Blood Cell Count 3.15 M/mm3 (4.30-5.90); White Blood Cell Count 10.95 K/mm3 (4.00-11.30)
[2020-03-25 11:50] LABS: Base Excess Venous -21.2 mmol/L; Bicarbonate Venous 9.7 mmol/L (24.0-30.0); PCO2 Venous 35.7 mmHg (38-42); pH Blood Venous 7.03 (7.34-7.37)
[2020-03-25 12:05] LABS: Ethanol (Alcohol), Blood, Med <3 mg/dL; Magnesium, Blood 4.3 mg/dL (1.6-2.4)
[2020-03-25 12:06] LABS: Albumin, Blood 3.5 g/dL (3.4-5.0); Albumin/Globulin Ratio 0.9 (0.8-1.8); Bilirubin, Total 0.2 mg/dL (0.1-1.0); Bun/Creatinine Ratio 13.9 (12.0-20.0); Calcium, Blood 10.4 mg/dL (8.5-10.1); Creatinine, Blood 9.23 mg/dL (0.60-1.20); Globulin, Blood 4.1 g/dL (2.2-4.0); Potassium, Blood 6.8 mmol/L (3.5-5.5); Total Protein, Blood 7.6 g/dL (6.4-8.2)
[2020-03-25] MEDS ORDERED: Aspir 8181 MG PO (12:31)
[2020-03-25] MEDS ORDERED: METO50ER PO (12:31)
[2020-03-25] MEDS ORDERED: TICA90TA PO (12:31)
[2020-03-25] MEDS ORDERED: NITROGLYCERIN0.4 M3 SL (12:31)
[2020-03-25] MEDS ORDERED: Lisinopril2.5 MG PO (12:31)
[2020-03-25] MEDS ORDERED: CLOP75 PO (13:35)
[2020-03-25] MEDS ORDERED: AMIT50 PO (13:35)
[2020-03-25] MEDS ORDERED: ATOR40TA PO (13:36)
[2020-03-25] MEDS ORDERED: Vitamin D2000 UNIT PO (13:37)
[2020-03-25] MEDS ORDERED: HYDHCL25 PO (13:38)
[2020-03-25] MEDS ORDERED: LEVSOD25 PO (13:38)
[2020-03-25] MEDS ORDERED: BASAGLAR K100 UNIT/1 SC (13:39)
[2020-03-25] MEDS ORDERED: SERT50 PO (13:40)
[2020-03-25] MEDS ORDERED: TAMS.4ER PO (13:40)
[2020-03-25] MEDS ORDERED: ASMANEX HFA13 G4 INH (13:41)
[2020-03-25 15:06] LABS: Adenovirus Not Detected (NOT DETECT); Bordetella pertussis Not Detected (NOT DETECT); Chlamydophila pneumoniae Not Detected (NOT DETECT); Coronavirus 229E Not Detected (NOT DETECT); Coronavirus HKU1 Not Detected (NOT DETECT); Coronavirus NL63 Not Detected (NOT DETECT); Coronavirus OC43 Not Detected (NOT DETECT); Human Metapneumovirus Not Detected (NOT DETECT); Human Rhinovirus/Enterovirus Not Detected (NOT DETECT); Influenza A/2009-H1 Not Detected (NOT DETECT); Influenza A/H1 Not Detected (NOT DETECT); Influenza A/H3 Not Detected (NOT DETECT); Influenza B Not Detected (NOT DETECT); Mycoplasma pneumoniae Not Detected (NOT DETECT); Parainfluenza Virus 1 Not Detected (NOT DETECT); Parainfluenza Virus 2 Not Detected (NOT DETECT); Parainfluenza Virus 3 Not Detected (NOT DETECT); Parainfluenza Virus 4 Not Detected (NOT DETECT); Respiratory Syncytial Virus Not Detected (NOT DETECT); SARS-Cov-2 (COVID-19), BioFire Not Detected (NOT DETECT)
[2020-03-25 15:43] LABS: U Amphetamine Screen Not Detected; U Barbituate Screen Not Detected; U Benzodiazapine Screen Not Detected; U Buprenorphine Screen Not Detected; U Cannabinoids Screen Not Detected; U Cocaine Screen Not Detected; U Methadone Screen Not Detected; U Methamphetamine Screen Not Detected; U Opiates Screen Not Detected; U Oxycodone Screen DETECTED; U Phencyclidine Screen Not Detected; U Propoxyphene Screen Not Detected
--- NOTE | 2020-03-25 18:47 | NUR ---
ICU ADMISSION / DR DIANE / SHIFT SUMMARY: REPORT RECEIVED FROM CHAN Mayorga RN IN ED. PT ARRIVED TO ICU-13 AT APPROX 1650. ON ARRIVAL THE PT IS TREMULOUS & TWITCHING. HE IS AWAKE & CAN TELL THIS RN HIS BIRTHDAY BUT IS OTHERWISE NOT ORIENTED. HE RESPONDS IN NONSENSICAL PHRASES & IS TALKING TO HIMSELF FREQUENTLY. HE IS CURRENTLY NOT PICKING AT LINES/ TUBES BUT IS OVERALL AGITATED. ASSESSMENT CHARTED. PT ON RA W/ O2 SATS > 92%. MONITOR SHOWS ST W/ HR 100s. HYPOTENSION ON ADMIT HAS IMPROVED SINCE IVF HAVE BEEN STARTED PER EMAR. PT IS STRICT NPO R/T MENTATION & DIAGNOSIS AT THIS TIME. CARLIN PATENT/ DRAINING DARK YELLOW URINE. CARLIN PLACED IN ED W/ NO UA COMPLETED. THIS RN CALLS LAB TO HAVE UA ADDED TO SPECIMEN USED FOR UTOX. SKIN OVERALL FRAGILE BUT INTACT. HIGH RISK FOR SKIN BREAKDOWN. PROVIDER DR DIANE HAS BEEN NOTIFIED OF NEPHROLOGY CONSULT BY BRITTANEY Patricio RN. ORDERS HAVE BEEN PLACED & F/U LABS ORDERED FOR 1999, PLEASE CALL PROVIDER W/ RESULTS BY 2100 TONIGHT. PROVIDER IN UNIT TO SEE PT, NOTIFIED HIM OF DUPLICATE RENAL US ORDER, STS TO D/C DUPLICATE. BIBARB PUSHES & IVF PER EMAR. SINCE ADMISSION, DR SANDHU HAS BEEN NOTIFIED OF PT's STATUS & PICC LINE HAS BEEN ORDERED. AMBER CASE RN, & BRITTANEY Patricio RN, HAVE PLACED THE PICC LINE WHICH HAS HAD PLACEMENT VERIFIED W/ CXR. NO OTHER CHANGES AT THIS TIME. WILL CONTINUE TO MONITOR & REPORT OFF TO ONCOMING RN.
--- NOTE | 2020-03-25 19:31 | NUR ---
PRECEDEX PRECEDEX STARTED AT 0.3MCG/KG/HR AT THIS TIME FOR SEDATION.
--- NOTE | 2020-03-25 19:55 | NUR ---
ASSUMED CARE ASSUMED CARE OF PT AT 1900. REPORT RECEIVED FROM KATARINA ALONSO. PT LYING IN BED, SLEEPING, SNORING, APPEARS TO BE TWITCHING T/O BODY. PT AROUSES TO VERBAL STIMULUS, OPENS EYES, DOES NOT VERBALIZE NAME OR , UNSURE OF LOCATION WHEN ASKED. PT STATES "YOU'RE HURTING ME" WHEN BEING REPOSITIONED, DOES NOT STATE LOCATION OF PAIN WHEN ASKED. MONITOR SHOWS SINUS RHYHTM/SINUS TACH WITH HR 90-110, SYSTOLIC BP 90-100 WITH MAP >65, SPO2 92% ON ROOM AIR. AFEBRILE. LUNG SOUNDS DIMINISHED T/O WITH COARSE EXP SOUNDS IN UPPER ABBOTT THAT IMPROVE WITH COUGHING. PT NOTED TO HAVE AICD IN LEFT UPPER CHEST WALL WITH SCAR ON LEFT SHOULDER. ABDOMEN ROUND, SOFT, BOWEL TONES HYPOACTIVE T/O. CARLIN CATHETER IN PLACE DRAINING YELLOW URINE TO GRAVITY. SKIN OVERALL C/D/I EXCEPT FOR WOUND NOTED TO R FOOT. HYDROCOLLOID DRESSING TO R FOOT REMOVED, WOUND CLEANSED, HYDROGEL APPLIED, DRESSED WITH ALGINATE AND KERLEX WRAP. PHOTOS PLACED ON CHART. PLAN TO CALL AND DISCUSS WITH HOSPITALIST. BED ALARM PLACED ON FOR SAFETY AND BED IN LOWEST POSITION. WILL CONTINUE TO MONITOR PT.
--- NOTE | 2020-03-25 20:04 | NUR ---
WOUND/HOSPITALIST CALL TO HOSPITALIST АННА REGARDING R FOOT WOUND. АННА TO COME EVALUATE THE WOUND AND PLANS FOR XRAY.
[2020-03-25 20:16] LABS: Potassium, Blood 5.3 mmol/L (3.5-5.5)
[2020-03-25 20:29] LABS: Albumin, Blood 3.2 g/dL (3.4-5.0); Anion Gap 13 mmol/L (6-16); Blood Urea Nitrogen 119 mg/dL (8-24); CO2, Blood 15 mmol/L (21-32); Calcium, Blood 9.5 mg/dL (8.5-10.1); Chloride, Blood 110 mmol/L (98-108); Creatinine, Blood 7.43 mg/dL (0.60-1.20); Glomerular Filtration Rate 8 (60-); Glucose, Blood 117 mg/dL (70-99); Potassium, Blood 5.4 mmol/L (3.5-5.5); Sodium, Blood 138 mmol/L (136-145)
[2020-03-25 20:39] LABS: Phosphorus, Blood 9.3 mg/dL (2.5-4.9)
[2020-03-25 20:54] LABS: Source, Urine Catheter
[2020-03-25 20:58] LABS: Blood, Urine 1+ (Neg); Glucose Qualitative, Urine Neg (Neg); Ketones, Urine Neg (Neg); Leukocyte Esterase, Urine Neg (Neg); Nitrite, Urine Neg (Neg); Protein, Urine 2+ (Neg); Urobilinogen, Urine NORM (Normal)
--- NOTE | 2020-03-25 21:00 | NUR ---
SISTER SPOKE WITH PT'S SISTER RONN - UPDATED ON CONDITION. SHE STATES [facility] FOLLOW[facility] PT FOR FOOT WOUND. ALSO STATES SHE BELIEVES PT HAD 3 CARDIAC STENTS PLACED AT [facility] LAST MONTH. SHE IS UNSURE OF HIS HOME MEDICATION REGIMEN. PLANS TO VISIT PT TOMORROW.
[2020-03-25 21:06] LABS: Bilirubin, Urine 2+ (Neg)
[2020-03-25 21:18] LABS: Appearance, Urine Clear (Clear); Color, Urine Yellow (P-Yellow)
[2020-03-25 21:19] LABS: White Blood Cells, Urine Not Seen /hpf (0-5)
[2020-03-25 21:20] LABS: Bacteria Few /hpf; Squamous Epithelial Cells Rare /hpf (Few)
[2020-03-25 21:21] LABS: Amorphous Light (0-Heavy); Hyaline Casts 0-2 /lpf (0-2)
--- NOTE | 2020-03-25 21:33 | NUR ---
HANDOFF REPORT GIVEN TO KATARINA PENNY TO ASSUME CARE OF PT.
[2020-03-26 04:49] LABS: Hematocrit 24.3 % (37.0-53.0); Hemoglobin 7.4 g/dL (13.5-17.5)
--- NOTE | 2020-03-26 04:50 | NUR ---
LUNG SOUNDS/CALL TO MD DR. BECK NOTIFIED OF EXP WHEEZES AND COARSE CRACKLES IN LUNGS. NEW ORDERS RECEIVED AT THIS TIME.
[2020-03-26 05:08] LABS: Magnesium, Blood 3.4 mg/dL (1.6-2.4)
[2020-03-26 05:09] LABS: Albumin, Blood 2.9 g/dL (3.4-5.0); Anion Gap 7 mmol/L (6-16); Blood Urea Nitrogen 103 mg/dL (8-24); CO2, Blood 21 mmol/L (21-32); Calcium, Blood 8.8 mg/dL (8.5-10.1); Chloride, Blood 109 mmol/L (98-108); Glomerular Filtration Rate 13 (60-); Glucose, Blood 154 mg/dL (70-99); Potassium, Blood 4.9 mmol/L (3.5-5.5); Sodium, Blood 137 mmol/L (136-145)
[2020-03-26 06:00] LABS: Phosphorus, Blood 8.4 mg/dL (2.5-4.9)
--- NOTE | 2020-03-26 06:50 | NUR ---
SHIFT SUMMARY O2 NOW AT 3L TO MAINTAIN SATS >90%. TACHYPNEIC AT TIMES WITH RATE INCREASING TO 30s. LUNGS WITH EXP WHEEZING AND COARSE CRACKLES THIS AM. LASIX GTT STARTED AT 2MG/HR PER MD. BICARB GTT CONTINUES AT 150CC/HR PER ORDER. MONITOR SHOWS SR-ST, RATE 90s-100s. NPO. CARLIN PATENT AND DRAINING BATSHEVA URINE. ROUSES TO VERBAL STIMULI. MOVES ALL EXTREMITIES. OCCASIONALLY FOLLOWS SIMPLE COMMANDS. SPEECH CONTINUES TO BE GARBLED. WILL REPORT TO ONCOMING RN WHEN AVAILABLE.
--- NOTE | 2020-03-26 08:12 | NUR ---
INITIAL ASSESSMENT PATIENT SLEEPING SOUNDLY UPON ENTERING ROOM. PATIENT RESPONDS MINIMALLY TO PAINFUL STIMULI/ NURSING CARE. PATIENT HAS NO SIGNS OF PAIN NOTED. PATIENT MAKES INCOMPREHENSIBLE, MUMBLING SOUNDS ON OCCASION. PATIENT LOCALIZING MOVEMENTS TO PAIN. PATIENT HAS SOME MUSCULAR TWITCHING/ JERKING NOTED. PATIENT AFEBRILE. PATIENT SATTING 90% AND GREATER ON 3 L NC. PATIENT RA AT HOME. LUNGS COARSE T/O. PATIENT HAS VERY LOOSE COUGH. NURSE ABLE TO SUCTION LARGE AMOUNT OF THICK, KUMAR SPUTUM WITH YANKAUER; APPEARS TO HAVE SMALL FOOD PARTICLES PRESENT WELL. PATIENT IN FIRST DEGREE HB WITH BBB. PATIENT HAS AICD. HR IN THE 90S. SBP 80S TO LOW 100S. PULSES FAINT. ABDOMEN MODERATELY DISTENDED, SOFT, WITH HYPOACTIVE BS NOTED. PATIENT NPO. DATE OF LAST BM UNKNOWN. CARLIN DRAINING YELLOW COLORED URINE. SKIN PALE, CYANOTIC. PATIENT HAS BLACKENED R EYE SOCKET. BRUISES SCATTERED TO BUES. AMPUTATED R GREAT TOE. SCAR TO LEFT CHEST WALL. WOUND TO R LATERAL FOOT. DRESSING IN PLACE. NS TKO. SODIUM BICARB INFUSING AT 75 MLS/ HOUR. BED LOW, CALL LIGHT IN REACH. WILL CONTINUE TO MONITOR PATIENT FREQUENTLY THROUGHOUT SHIFT.
--- NOTE | 2020-03-26 09:05 | NUR ---
SPOKE WITH DR. SANDHU STATING CONCERN ABOUT PATIENT. PATIENT PALE, CYANOTIC APPEARING. PATIENT SOUNDS EXTREMELY COARSE IN ALL LUNGS LOBES. PATIENT HAS MOIST COUGH. NURSE ABLE TO SUCTION UP LARGE AMOUNT OF THICK, YELLOW SPUTUM THAT APPEARS TO POSSIBLY HAVE FOOD PARTICLES IN IT. DR. SANDHU ORDERED STAT VBG, CHEST XR AND TO CONSULT DR. MARTÍNEZ. DR. DIANE CALLED AND INFORMED. DR. MARTÍNEZ IN UNIT AND CONSULTED ON PATIENT.
[2020-03-26 09:45] LABS: Base Excess Venous -5.8 mmol/L; Bicarbonate Venous 19.6 mmol/L (24.0-30.0); PCO2 Venous 45.3 mmHg (38-42); PO2 Venous 43.8 mmHg (38-42)
[2020-03-26 09:46] LABS: pH Blood Venous 7.28 (7.34-7.37)
--- NOTE | 2020-03-26 11:31 | NUR ---
DR. MARTÍNEZ IN ROOM ACCESSING PATIENT. AWARE OF VBG RESULTS.
--- NOTE | 2020-03-26 12:00 | NUR ---
PATIENT AFEBRILE. NO SIGNS OF PAIN NOTED. PATIENT SLIGHTLY MORE RESPONSIVE THAN THIS AM. PATIENT SAID "WHAT" WHEN NURSE SAID PATIENT'S NAME VERY LOUDLY. THE REST OF THE PATIENT'S SPEECH IS INCOMPREHENSIBLE. HR LOW 100S TO 1-TEENS. SBP 120S TO 150S. PATIENT STILL HAS LOOSE COUGH AND NURSE REMAINS SUCTIONING UP LARGE AMOUNTS OF THICK, YELLOW SPUTUM. BICARB INFUSING AT 50 MLS/ HOUR. BLOOD SUGAR OF 108; NO COVERAGE INDICATED. BED LOW, CALL LIGHT IN REACH. WILL CONTINUE TO MONITOR.
[2020-03-26 12:51] LABS: BASOPHILS ABSOLUTE AUTO 0.01 K/mm3 (0.00-0.23); BASOPHILS PERCENT AUTO 0 % (0-2); EOSINOPHILS ABSOLUTE AUTO 0.12 K/mm3 (0.00-0.68); EOSINOPHILS PERCENT AUTO 2 % (0-6); Hematocrit 23.6 % (37.0-53.0); Hemoglobin 7.5 g/dL (13.5-17.5); IMMATURE GRAN ABSOLUTE AUTO 0.06 K/mm3 (0.00-0.10); IMMATURE GRAN PERCENT AUTO 1 % (0-1); LYMPHOCYTES ABSOLUTE AUTO 0.45 K/mm3 (0.84-5.20); LYMPHOCYTES PERCENT AUTO 6 % (21-46); MONOCYTES ABSOLUTE AUTO 0.43 K/mm3 (0.16-1.47); MONOCYTES PERCENT AUTO 5 % (4-13); Mean Corpuscular HGB Conc 31.8 g/dL (31.5-36.5); Mean Corpuscular Volume 88 fL (80-100); Mean Platelet Volume 10.1 fL (9.1-12.4); NEUTROPHILS ABSOLUTE AUTO 7.18 K/mm3 (1.96-9.15); NEUTROPHILS PERCENT AUTO 87 % (41-73); Platelet Count 198 K/mm3 (150-400); RDW Coefficient Variation 16.4 % (11.7-14.2); RDW Standard Deviation 53.1 fL (35.1-46.3); Red Blood Cell Count 2.68 M/mm3 (4.30-5.90); White Blood Cell Count 8.25 K/mm3 (4.00-11.30)
--- NOTE | 2020-03-26 13:45 | NUR ---
DR. THOMAS IN ROOM TO SEE PATIENT.
--- NOTE | 2020-03-26 16:00 | NUR ---
PATIENT AGITATED, RESTLESS, CONFUSED. PATIENT HAS TEMP OF 100.5 DEGREES FAHRENHEIT; DR. MARTÍNEZ MADE AWARE. HR 120S TO 130S. SBP 140S TO 150S. PATIENT TACHYPNEIC WHILE AGITATED. WOUND CARE PERFORMED ON R FOOT WOUND.
--- NOTE | 2020-03-26 18:55 | NUR ---
SHIFT SUMMARY PATIENT REMAINED CONFUSED ALL SHIFT. PATIENT CONTINUES TO HAVE MOSTLY INCOMPREHENSIBLE SPEECH. PATIENT REMAINS LOCALIZING MOVEMENTS. PATIENT CONTINUES TO HAVE MUSCULAR TWITCHING/ JERKING. PATIENT HAD TMAX OF 100.5 DEGREES FAHRENHEIT. PATIENT PLACED IN RESTRAINTS AT 1800 FOR DECREASED LOC, CONFUSION, PULLING AT IMPORTANT MONITORING EQUIPMENT, CARLIN, ETC. PRN PRECEDEX ORDERED FOR AGITATION. LUNGS REMAINED COARSE THROUGHOUT, ALTHOUGH THERE WAS IMPROVEMENT THROUGHOUT THE DAY. PATIENT CONTINUES TO HAVE UP LARGE AMOUNTS OF THICK, YELLOW SPUTUM. PATIENT TACHYPNEIC WHEN AGITATED/ ANXIOUS/ RESTLESS. PATIENT FIRST DEGREE HB TO SR/ST WITH BBB. AICD PRESENT. PULSES FAINT. HR 90S TO 130S. TACHYCARDIC WHEN AGITATED. SBP 80S TO 150S. NO BM THIS SHIFT. PATIENT REMAINED NPO. CARLIN DRAINED 3450 MLS OF YELLOW COLORED URINE. WOUND CARE PERFORMED THIS SHIFT. PATIENT REPOSITIONED THROUGHOUT SHIFT. NS TKO. SODIUM BICARB INFUSING AT 50 MLS/ HOUR. UNASYN AND VANCO STARTED THIS SHIFT. SPUTUM SENT TO LAB. 2G CALCIUM GLUCONATE GIVEN THIS SHIFT. BED LOW, CALL LIGHT IN REACH. WILL BE GIVING REPORT TO ONCOMING INSULATION ENGINEMAN NURSE SHORTLY.
--- NOTE | 2020-03-26 19:00 | NUR ---
ASSUMED CARE ASSUMED CARE OF PATIENT. ALERT. ORIENTED TO SELF AND TO THE FACT THAT HE IS IN THE HOSPITAL, BUT DOESN'T KNOW WHICH HOSPITAL. DISORIENTED TO DATE/TIME. CONFUSED CONVERSATION. GARBLED SPEECH. FOLLOWS SIMPLE COMMANDS. MOVES ALL EXTREMITIES. BILATERAL SOFT WRIST RESTRAINTS IN PLACE TO PROTECT TUBES/LINES. MONITOR SHOWS ST WITH FHB, RATE 120s. BP STABLE. REMAINS ON 3L NC WITH SATS >90%. RESPIRATIONS UNLABORED, BUT SOME TACHYPNEA NOTED WITH AGITATION AND RESTLESSNESS. CARLIN PATENT AND DRAINING YELLOW URINE. BICARB GTT INFUSING AT 50CC/HR PER ORDER. DRSG D/I TO RIGHT FOOT. SEE SHIFT ASSESSMENT FOR FULL ASSESSMENT.
--- NOTE | 2020-03-26 23:00 | NUR ---
AGITATION/CALL TO MD DR. MARTÍNEZ NOTIFIED OF INCREASED AGITATION DESPITE PRECEDEX AT 0.7MCG/KG/HR. NEW ORDER RECEIVED TO TITRATE PRECEDEX UP TO 1.4MCG/KG/HR IF NEEDED.
--- NOTE | 2020-03-27 00:30 | NUR ---
UPDATE PT YELLING OUT "I'M THIRSTY" AND "WHAT KIND OF PLACE IS THIS?" ATTEMPTS TO ORIENT PT TO PLACE, PT BECOMES MORE AGITATED AND ANGRY. CURSING AT RN AND STATES "DON'T LIE TO ME" AND THEN "GIVE ME SOME WHISKEY." WHEN QUESTIONED, PT STATES THAT HE NORMALLY DRINKS BEER AND WHISKEY EVERY DAY.
--- NOTE | 2020-03-27 01:50 | NUR ---
RESTRAINTS PT CONTINUES TO KICK LEGS AND THROW LEGS OVER SIDE OF BED. BILATERAL SOFT ANKLE RESTRAINTS ON AT THIS TIME.
--- NOTE | 2020-03-27 02:05 | NUR ---
AGITATION PT WITH INCREASED AGITATION AND RESTLESSNESS. YELLS OUT FREQUENTLY. PULLING AGAINST RESTRAINTS. PRECEDEX INFUSING AT 1.4UNITS/KG/HR. DR. HOUSER NOTIFIED OF INCREASE IN AGITATION AND NEW ORDER RECEIVED FOR ATIVAN PRN.
[2020-03-27 04:03] LABS: BASOPHILS ABSOLUTE AUTO 0.03 K/mm3 (0.00-0.23); BASOPHILS PERCENT AUTO 0 % (0-2); EOSINOPHILS ABSOLUTE AUTO 0.18 K/mm3 (0.00-0.68); EOSINOPHILS PERCENT AUTO 2 % (0-6); Hematocrit 24.3 % (37.0-53.0); Hemoglobin 7.5 g/dL (13.5-17.5); IMMATURE GRAN ABSOLUTE AUTO 0.09 K/mm3 (0.00-0.10); IMMATURE GRAN PERCENT AUTO 1 % (0-1); LYMPHOCYTES PERCENT AUTO 5 % (21-46); MONOCYTES PERCENT AUTO 5 % (4-13); Mean Corpuscular HGB 27.4 pg (26.0-34.0); Mean Corpuscular HGB Conc 30.9 g/dL (31.5-36.5); Mean Corpuscular Volume 89 fL (80-100); Mean Platelet Volume 10.1 fL (9.1-12.4); NEUTROPHILS ABSOLUTE AUTO 8.86 K/mm3 (1.96-9.15); NEUTROPHILS PERCENT AUTO 87 % (41-73); Platelet Count 212 K/mm3 (150-400); RDW Coefficient Variation 16.5 % (11.7-14.2); RDW Standard Deviation 53.7 fL (35.1-46.3); Red Blood Cell Count 2.74 M/mm3 (4.30-5.90); White Blood Cell Count 10.16 K/mm3 (4.00-11.30)
[2020-03-27 04:25] LABS: Albumin, Blood 2.6 g/dL (3.4-5.0); Anion Gap 3 mmol/L (6-16); Blood Urea Nitrogen 53 mg/dL (8-24); Bun/Creatinine Ratio 47.7 (12.0-20.0); CO2, Blood 30 mmol/L (21-32); Calcium, Blood 9.4 mg/dL (8.5-10.1); Chloride, Blood 113 mmol/L (98-108); Creatinine, Blood 1.11 mg/dL (0.60-1.20); Glomerular Filtration Rate >60 (60-); Glucose, Blood 145 mg/dL (70-99); Potassium, Blood 4.4 mmol/L (3.5-5.5); Sodium, Blood 146 mmol/L (136-145)
[2020-03-27 04:27] LABS: Phosphorus, Blood 2.9 mg/dL (2.5-4.9)
--- NOTE | 2020-03-27 06:21 | NUR ---
SHIFT SUMMARY PRECEDEX STARTED AT BEGINNING OF SHIFT AND TITRATED UP TO 1.4MCG/KG/HR. NOW INFUSING AT 1.1MCG/KG/HR. ALSO MEDICATED WITH ATIVAN 2MG IV X 1 WITH GOOD RESULTS. PT CONTINUES TO BE ORIENTED TO SELF AND OCCASIONALLY TO PLACE. FOLLOWS SIMPLE COMMANDS. AGITATED WHEN AWAKE. BILATERAL SOFT WRIST AND ANKLE RESTRAINTS REMAIN IN PLACE. CARLIN WITH GOOD UO. NPO. OCCSASIONALLY HYPERTENSIVE. HR 90s-120s. CBGs STABLE. O2 AT 3LNC WITH SATS >90%. TACHYPNEIC WITH AGITATION. BICARB GTT CONTINUES AT 50CC/HR PER ORDER. WILL REPORT TO ONCOMING RN WHEN AVAILABLE.
--- NOTE | 2020-03-27 08:00 | NUR ---
INITIAL ASSESSMENT PATIENT AGITATED, ANXIOUS, RESTLESS THIS AM UPON ENTERING ROOM. CIWA SCORE OF 20. PATIENT GIVEN PRN ATIVAN. PATIENT RESPONDING TO VERBAL STIMULI. PATIENT CONFUSED AND UNABLE TO FOLLOW ANY SORT OF DIRECTION OR COMMAND. PATIENT HAS GARBLED SPEECH; DIFFICULT TO UNDERSTAND. PATIENT ABLE TO MOVE ALL EXTREMITIES. AFEBRILE. LUNGS COARSE WITH RHONCHI NOTED. PATIENT SATTING 90% AND GREATER ON 3 L NC. PATIENT HAS LOOSE COUGH, PRODUCING MODERATE AMOUNT OF THICK, YELLOW SPUTUM. PATIENT IN SR WITH BBB, HR IN THE 90S. AICD TO LEFT CHEST WALL. SBP 150S TO 180S. ABDOMEN MODERATELY DISTENDED, SOFT, WITH HYPOACTIVE BS NOTED. DATE OF LAST BM UNKNOWN. CARLIN IN PLACE DRAINING YELLOW COLORED URINE WITH SEDIMENT NOTED. SKIN PALE AND FRAGILE. R ORBITAL BRUISING NOTED. SLIGHT BRUISING ALSO NOTED TO INSIDE L ORBITAL AND AT ENTRANCE TO NARES/ BRIDGE OF NOSE. AMPUTATED R GREAT TOE. BRUISING NOTED TO BUES. WOUND TO LATERAL R FOOT- DRESSING IN PLACE. NS TKO. PRECEDEX INFUSING AT 1.2 MCG/ KG/ HOUR. SODIUM BICARB DC'D. BED LOW, CALL LIGHT IN REACH. WILL CONTINUE TO MONITOR PATIENT FREQUENTLY THROUGHOUT SHIFT.
[2020-03-27 08:12] LABS: Alanine Aminotransfer (ALT/SGP 17 U/L (12-78); Albumin, Blood 2.7 g/dL (3.4-5.0); Albumin/Globulin Ratio 0.7 (0.8-1.8); Alk Phos 99 U/L (50-136); Aspartate Aminotrans (AST/SGOT 22 U/L (12-37); Bilirubin, Direct <0.1 mg/dL (0.0-0.3); Bilirubin, Indirect Unable to Calculate mg/dL (0.1-0.7); Bilirubin, Total 0.3 mg/dL (0.1-1.0); Globulin, Blood 3.9 g/dL (2.2-4.0); Total Protein, Blood 6.6 g/dL (6.4-8.2)
--- NOTE | 2020-03-27 09:57 | NUR ---
DR. MARTÍNEZ IN ROOM TO SEE PATIENT. INFORMED THAT NIGHT RN STATED PATIENT ASKING FOR WHISKEY AND BEER DURING THEIR SHIFT. INFORMED THAT PATIENT ON PRECEDEX AT 1.2 MCG/ KG/ HOUR AND THAT PATIENT STARTED ON PRN ATIVAN. INFORMED THAT PRN ATIVAN HAS HELPED SIGNIFICANTLY WITH AGITATION AND RESTLESSNESS. INFORMED THAT SBP UP TO 170S THIS AM. INFORMED THAT PATIENT TAKES SCHEDULED METOPROLOL AND LISINIPRIL AT HOME. INFORMED THAT PATIENT ON PLAVIX FOR RECENT STENT PLACEMENT. ORDERS RECEIVED.
--- NOTE | 2020-03-27 12:00 | NUR ---
PATIENT HAS REMAINED AGITATED AND RESTLESS. PRN ATIVAN HAS HELPED SIGNIFICANTLY. PRECEDEX REMAINS AT 1.2 MCG/ KG/ HOUR. CIWA SCORE OF 9. PATIENT HAS TEMP OF 99.6 DEGREES FAHRENHEIT. PATIENT SATTING 90% AND GREATER ON 8 L OXYMIZER. HR IN LOW 100S. SBP 150S TO 160S. DOBHOFF PLACED AND CONFIRMED VIA CHEST XRAY FOR USE. BLOOD SUGAR OF 161; NO COVERAGE INDICATED. BED LOW, CALL LIGHT IN REACH. WILL CONTINUE TO MONITOR.
--- NOTE | 2020-03-27 16:00 | NUR ---
PATIENT AFEBRILE. CIWA SCORE OF 7. PRN ATIVAN REMAINS WORKING WELL FOR PATIENT AGITATION. PATIENT REMAINS ON 8 L OXYMIZER TO KEEP SATS 90% AND GREATER. HR LOW 100S TO 1-TEENS. SBP 150S TO 170S. COMPLETE BED BATH PERFORMED. WOUNDS ON R FOOT CLEANSED, XEROFORM APPLIED, FOAM MEPILEX AND KERLEX APPLIED. WILL CONTINUE TO MONITOR.
--- NOTE | 2020-03-27 18:51 | NUR ---
SHIFT SUMMARY PATIENT REMAINED AGITATED OFF AND ON THROUGHOUT SHIFT. CIWA SCORES RANGED FROM 7-20. PATIENT CONTINUED TO HAVE GARBLED/ NONSENSICAL SPEECH. PATIENT RESTLESS. PRECEDEX REMAINED AT 1.2 MCG/ KG/ HOUR. PATIENT HAD TMAX OF 99.6 DEGREES FAHRENHEIT. LUNGS REMAINED COARSE. PATIENT ON 3 L NC TO 8 L OXYMIZER. PATIENT CURRENTLY ON 6 L OXYMIZER. PATIENT CONTINUED TO HAVE LOOSE COUGH. PATIENT REMAINED IN SR TO ST WITH BBB. HR 90S TO 120S. SBP 130S TO 180S. PRN LABETALOL STARTED THIS SHIFT FOR HTN. PATIENT WILL START ON METOPROLOL PT TOMORROW. PATIENT TAKES METOPROLOL AT HOME. NO BM THIS SHIFT. PATIENT REMAINS NPO. CARLIN DRAINED 3240 MLS OF YELLOW COLORED URINE WITH SEDIMENT NOTED. NO CHANGE TO SKIN. PATIENT REPOSITIONED T/O SHIFT. PICC LINE DRESSING CHANGED IN AM. NS TKO, PRECEDEX AT 1.2 MCG/ KG/ HOUR, CLINIMIX AT 50 MLS/ HOUR. WOUND CARE AND COMPLETE BED BATH PERFORMED THIS SHIFT. BLOOD SUGARS IN 160S; NO COVERAGE INDICATED. BED LOW, CALL LIGHT IN REACH. WILL CONTINUE TO MONITOR FREQUENTLY UNTIL REPORT GIVEN TO ASSUMING [employer] NURSE SHORTLY.
--- NOTE | 2020-03-27 19:00 | NUR ---
ASSUMED CARE ASSUMED CARE OF PATIENT. AWAKE AND AGITATED. ORIENTED TO SELF ONLY AND FOLLOWS OCCASIONAL SIMPLE COMMANDS. BILATERAL SOFT ANKLE AND WRIST RESTRAINTS IN PLACE TO PROTECT TUBES/LINES. PRECEDEX INFUSING AT 1.2MCG/KG/HR. MOVES ALL EXTREMITIES AND REPOSITIONS SELF FREQUENTLY. MONITOR SHOWS SR, RATE 90s. SBP 160-170s. SATS STABLE WITH OXYMIZER AT 6L. RESPIRATIONS EVEN AND UNLABORED AT REST, BUT PT IS TACHYPNEIC WITH AGITATION AND EXERTION. CARLIN PATENT AND DRAINING. DOBHOFF CLAMPED. NPO. SEE SHIFT ASSESSMENT FOR FULL ASSESSMENT.
[2020-03-28 04:19] LABS: BASOPHILS ABSOLUTE AUTO 0.03 K/mm3 (0.00-0.23); BASOPHILS PERCENT AUTO 0 % (0-2); EOSINOPHILS ABSOLUTE AUTO 0.28 K/mm3 (0.00-0.68); EOSINOPHILS PERCENT AUTO 2 % (0-6); Hematocrit 26.4 % (37.0-53.0); Hemoglobin 8.1 g/dL (13.5-17.5); IMMATURE GRAN ABSOLUTE AUTO 0.14 K/mm3 (0.00-0.10); IMMATURE GRAN PERCENT AUTO 1 % (0-1); LYMPHOCYTES ABSOLUTE AUTO 0.64 K/mm3 (0.84-5.20); LYMPHOCYTES PERCENT AUTO 5 % (21-46); MONOCYTES ABSOLUTE AUTO 0.76 K/mm3 (0.16-1.47); MONOCYTES PERCENT AUTO 6 % (4-13); Mean Corpuscular HGB 27.4 pg (26.0-34.0); Mean Corpuscular HGB Conc 30.7 g/dL (31.5-36.5); Mean Corpuscular Volume 89 fL (80-100); NEUTROPHILS PERCENT AUTO 86 % (41-73); Platelet Count 257 K/mm3 (150-400); RDW Coefficient Variation 16.5 % (11.7-14.2); Red Blood Cell Count 2.96 M/mm3 (4.30-5.90); White Blood Cell Count 13.05 K/mm3 (4.00-11.30)
[2020-03-28 04:39] LABS: Albumin, Blood 2.7 g/dL (3.4-5.0); Anion Gap 5 mmol/L (6-16); Blood Urea Nitrogen 33 mg/dL (8-24); Bun/Creatinine Ratio 37.3 (12.0-20.0); CO2, Blood 30 mmol/L (21-32); Calcium, Blood 9.6 mg/dL (8.5-10.1); Chloride, Blood 114 mmol/L (98-108); Creatinine, Blood 0.89 mg/dL (0.60-1.20); Glomerular Filtration Rate >60 (60-); Glucose, Blood 166 mg/dL (70-99); Magnesium, Blood 1.8 mg/dL (1.6-2.4); Phosphorus, Blood 1.4 mg/dL (2.5-4.9); Potassium, Blood 3.9 mmol/L (3.5-5.5); Sodium, Blood 149 mmol/L (136-145); Vancomycin, Trough 18.7 ug/mL (5.0-10.0)
--- NOTE | 2020-03-28 06:17 | NUR ---
SHIFT SUMMARY NO ACUTE CHANGES. PRECEDEX INFUSED BETWEEN 1.O-1.2MCG/KG/HR DURING SHIFT- NOW INFUSING AT 1.2MCG/KG/HR. MEDICATED WITH PRN ATIVAN FREQUENTLY DURING SHIFT. DIFFICULT TO ASSESS CIWA SCORE D/T PT'S INABILITY TO ANSWER QUESTIONS. MEDICATED WITH LABETALOL X 1 FOR HYPERTENSION. OXYMIZER NOW AT 4L. CONTINUES TO BE TACHYPNEIC AT TIMES. DOBHOFF CLAMPED. CARLIN PATENT AND DRAINING. CLINIMIX INFUSING AT 100CC/HR PER ORDER. WILL REPORT TO ONCOMING RN WHEN AVAILABLE.
[2020-03-28 10:48] LABS: Base Excess Venous 8.9 mmol/L; Bicarbonate Venous 31.7 mmol/L (24.0-30.0); PCO2 Venous 45.4 mmHg (38-42); PO2 Venous 49.5 mmHg (38-42); pH Blood Venous 7.47 (7.34-7.37)
[2020-03-28 15:16] LABS: Phosphorus, Blood 2.2 mg/dL (2.5-4.9)
--- NOTE | 2020-03-28 15:19 | NUR ---
CALLED DR DIANE: NOTIFED HIM OF THE NA+ AND THE PHOS LEVELS. NO NEW ORDERS AT THIS TIME.
--- NOTE | 2020-03-28 19:00 | NUR ---
ASSUMED CARE NOTE: ASSUMED CARE OF PT AT 1900, RECEVIED REPORT FROM RAMA BRAY. PT IS MOANING AND YELLING, HOWEVER IS NOT TRACKING OR FOLLOWING ANY COMMANDS. PT IS FIGHTING RESTRAINTS, SQUIRMING IN BED. PT IS ON 1.4MCG/KG/HR OF PRECEDEX. 4MG OF ATIVAN GIVEN, FOR AGITATION AND CIWA SCORE. PT IS ON BIPAP WITH SETTINGS 10/5 FiO2 OF 35%, SPO2 AT 97% WHILE AGITATED PT'S RR IS IN THE 40'S, WILL DECREASE INTO THE 30'S WHILE CALM . PT IS IN SINUS TACH WITH HR IN THE 90-120'S. SBP IN THE 140'S. PT IS 4 POINT SOFT RESTRAINTS. CARLIN PATENT, DRAINING TO GRAVITY. WILL CONTINUE TO MONITOR PT T/O SHIFT.
[2020-03-29 03:59] LABS: BASOPHILS ABSOLUTE AUTO 0.04 K/mm3 (0.00-0.23); BASOPHILS PERCENT AUTO 0 % (0-2); EOSINOPHILS ABSOLUTE AUTO 1.02 K/mm3 (0.00-0.68); EOSINOPHILS PERCENT AUTO 9 % (0-6); Hematocrit 24.4 % (37.0-53.0); Hemoglobin 7.3 g/dL (13.5-17.5); IMMATURE GRAN PERCENT AUTO 1 % (0-1); LYMPHOCYTES ABSOLUTE AUTO 1.14 K/mm3 (0.84-5.20); LYMPHOCYTES PERCENT AUTO 10 % (21-46); MONOCYTES PERCENT AUTO 8 % (4-13); Mean Corpuscular HGB 27.5 pg (26.0-34.0); Mean Corpuscular HGB Conc 29.9 g/dL (31.5-36.5); Mean Corpuscular Volume 92 fL (80-100); Mean Platelet Volume 9.7 fL (9.1-12.4); NEUTROPHILS PERCENT AUTO 71 % (41-73); Platelet Count 240 K/mm3 (150-400); RDW Coefficient Variation 16.4 % (11.7-14.2); RDW Standard Deviation 54.8 fL (35.1-46.3); Red Blood Cell Count 2.65 M/mm3 (4.30-5.90)
[2020-03-29 04:15] LABS: Albumin, Blood 2.2 g/dL (3.4-5.0); Anion Gap 2 mmol/L (6-16); Blood Urea Nitrogen 30 mg/dL (8-24); Bun/Creatinine Ratio 36.1 (12.0-20.0); CO2, Blood 33 mmol/L (21-32); Calcium, Blood 8.8 mg/dL (8.5-10.1); Chloride, Blood 113 mmol/L (98-108); Creatinine, Blood 0.83 mg/dL (0.60-1.20); Glomerular Filtration Rate >60 (60-); Glucose, Blood 168 mg/dL (70-99); Magnesium, Blood 1.6 mg/dL (1.6-2.4); Phosphorus, Blood 2.5 mg/dL (2.5-4.9); Potassium, Blood 3.7 mmol/L (3.5-5.5); Sodium, Blood 148 mmol/L (136-145)
--- NOTE | 2020-03-29 05:45 | NUR ---
SHIFT SUMMARY: NO SIGNIFICANT CHANGES. PT CONTINUES TO BE ON BIPAP WITH NO CHANGES TO THE SETTINGS. FiO2 WAS TITRATED THIS SHIFT TO 30%, HOWEVER IT WAS INCREASED BACK TO 35% DUE TO LOWERING SPO2 OF 87% PT CONTINUES TO BE AGITATED, PRECEDEX AT 1.4MCG/KG/HR, PT MEDICATED WITH ATIVAN PRN. LIBRIUM GIVEN SCHEDULED. PT RR INCREASE INTO THE HIGH 40'S WHEN AGITATED, THEN DECREASED TO THE 20'S WHEN RESTING. PT'S BP STABLE. PT IN SINUS RHYTHM WITH HR IN THE 60-90'S, 110'S WHRN WORK OF BREATHING INCREASES. PT CONTINUES TO BE IN POINT 4 SOFT RESTRAINTS. CARLIN PATENT AND DRAINING TO GRAVITY. PT REQUIRES FREQUENT BOOST IN BED, DUE TO HIM SQUIRIMING IN BED AND PLACING LEDS OVER GAURD RAIL. WILL CONTINUE TO MONITOR PT UNTIL REPORT IS GIVEN TO ONCOMING SHIFT.
--- NOTE | 2020-03-29 07:38 | NUR ---
Received report from Kristen BRAY. Patient supine in bed to, left side. He is anxious and unable to follow commands or track movement with his eyes. He is on BiPAP 10/5 and 35% FiO2 and sats 97%. He is in four point soft restraints as he is pulling them and squirming in bed. He has 16 Fr. falk draining to gravity yellow urine. He has PICC line to DARIO dressing intact and site WNL's and is infusing Precedex 1.4 mcg/kg/hr, NS TKO, D5 at 50 ml/hr and Clinimix at 100ml/hr. He has right lateral foot wound and dressing intact and brandie wrap bandage and cullen area on coccyx.
--- NOTE | 2020-03-29 09:30 | NUR ---
Patient medicated with 2 mg Ativan for agitation, meds down with Dobhoff and working well. No Bipap setting changes other than FiO2 to 30%, sats remain >90%. Dr Morales by and reviewed patient and will catering sales manager manage.
--- NOTE | 2020-03-29 11:34 | NUR ---
Patient very anxious and medicated with 4 mg ativan. RR 40-50, sats > 90%. Dr Duval has been by and will possibly place on Versed gtt if current meds continue to not keep relaxed. ANTOINE. VSS, See EMR. She is stopping Clinimix and D% and starting TF with Free water.
--- NOTE | 2020-03-29 14:40 | NUR ---
Medicated for anxiety with ativan and seems to keep calm and RR <30. VSS, See EMR. Still no neuro changes and does not track or follow simple commands. Continues to move all extremities. He remains in 4 points restraints for safety. Started TF at 25ml/hr with free water flushes of 250 ml Q4. Emtied 2100 mls yellow urine from falk.
--- NOTE | 2020-03-29 16:30 | NUR ---
Medicated for anxiety witth ativan and started to calm and lower RR. Dr Duval chnaged settings to !PAP 14/5 and 30% with sats >90%. VSS, See EMR. Patient has no neuro changes and just startes with no tracking. I have not been able to get him to follow any simple commands. Joyce intact and has yellow urine.
--- NOTE | 2020-03-29 18:30 | NUR ---
Patient has been working self up and gave his 50 librium and 4 mg Ativan with little relief and called Dr Duval and she ordered Versed gtt at 1 mg/hr. No changes since earlier note with Gtt's or BIPAP. VSS, see EMR other than RR.
--- NOTE | 2020-03-29 23:32 | NUR ---
PT AGITATED, PULLING AT RESTRAINTS, RR BETWEEN 40-60 ON 1MG/HR VERSED GTT. CALL PLACED TO DR PALMA RE TITRATION OF VERSED. ORDERS RECEIVED TO TITRATE TO LOWER RR BUT ENSURE PT CAN MAINTAIN OWN AIRWAY AND RR. MAY TITRATE UP TO 4MG/HR.
[2020-03-30 04:29] LABS: Base Excess Venous 6.2 mmol/L; Bicarbonate Venous 29.1 mmol/L (24.0-30.0); PCO2 Venous 41.8 mmHg (38-42); PO2 Venous 34.8 mmHg (38-42); pH Blood Venous 7.46 (7.34-7.37)
[2020-03-30 04:32] LABS: BASOPHILS ABSOLUTE AUTO 0.04 K/mm3 (0.00-0.23); BASOPHILS PERCENT AUTO 0 % (0-2); EOSINOPHILS ABSOLUTE AUTO 1.52 K/mm3 (0.00-0.68); EOSINOPHILS PERCENT AUTO 15 % (0-6); Hematocrit 26.1 % (37.0-53.0); Hemoglobin 7.7 g/dL (13.5-17.5); IMMATURE GRAN ABSOLUTE AUTO 0.09 K/mm3 (0.00-0.10); IMMATURE GRAN PERCENT AUTO 1 % (0-1); LYMPHOCYTES ABSOLUTE AUTO 0.99 K/mm3 (0.84-5.20); LYMPHOCYTES PERCENT AUTO 10 % (21-46); MONOCYTES ABSOLUTE AUTO 0.92 K/mm3 (0.16-1.47); MONOCYTES PERCENT AUTO 9 % (4-13); Mean Corpuscular HGB 27.1 pg (26.0-34.0); Mean Corpuscular HGB Conc 29.5 g/dL (31.5-36.5); Mean Corpuscular Volume 92 fL (80-100); Mean Platelet Volume 9.7 fL (9.1-12.4); NEUTROPHILS ABSOLUTE AUTO 6.58 K/mm3 (1.96-9.15); NEUTROPHILS PERCENT AUTO 65 % (41-73); Platelet Count 260 K/mm3 (150-400); RDW Coefficient Variation 16.3 % (11.7-14.2); RDW Standard Deviation 56.1 fL (35.1-46.3); Red Blood Cell Count 2.84 M/mm3 (4.30-5.90); White Blood Cell Count 10.14 K/mm3 (4.00-11.30)
[2020-03-30 04:48] LABS: Albumin, Blood 2.2 g/dL (3.4-5.0); Anion Gap 5 mmol/L (6-16); Blood Urea Nitrogen 21 mg/dL (8-24); CO2, Blood 30 mmol/L (21-32); Chloride, Blood 110 mmol/L (98-108); Creatinine, Blood 0.72 mg/dL (0.60-1.20); Glomerular Filtration Rate >60 (60-); Glucose, Blood 171 mg/dL (70-99); Magnesium, Blood 1.5 mg/dL (1.6-2.4); Phosphorus, Blood 2.3 mg/dL (2.5-4.9); Potassium, Blood 3.4 mmol/L (3.5-5.5); Sodium, Blood 145 mmol/L (136-145)
--- NOTE | 2020-03-30 06:09 | NUR ---
TOOK BIPAP OFF TO ASK PT SOME QUESTIONS AND NOTICED THE TAPE WAS NO LONGER ON PTS NOSE AND HANGING AROUND LIP AREA. TF PAUSED AND CXR ORDERED TO VERIFY PLACEMENT
--- NOTE | 2020-03-30 06:32 | NUR ---
SHIFT SUMMARY: VITALS STABLE. AFTER INITIATION OF VERSED GTT HR HOVERED 50-60S. VERSED GTT AT 1MG/HR WAS INITIALLY EFFECTIVE FOR A COUPLE HRS. SEE NN TO MINERVA. GRADUALLY TITRATED VERSED GTT UP BY A MG AT A TIME AND PT WOULD DO WELL. AFTER AWHILE HE WOULD BECOME AGITATED PULLING AT RESTRAINTS, ATTEMPTING TO GRAB MY SCRUBS, INCREASING HIS RR TO 40-60. PRN ATIVAN GIVEN AND WASNT EFFECTIVE SO VERSED WOULD BE INCREASED. PT CURRENTLY ON 4MG/HR. AND HAS RECEIVED 4MG ATIVAN AND IS RESTING QUIETLY. NOT AGITATED AT THIS TIME
--- NOTE | 2020-03-30 08:00 | NUR ---
Received report from Jp BRAY. Patient remains agitated at times and is squirming around in bed. He moans and makes noises but not any words or purposeful sounds. He does not track and or purposeful movements. He is on BIPAP 14/5 FiO2 30% and sats 94%. He has PICC line to DARIO infusing Precedex at 1.4 mcg/kg/hr, Versed at 4 mg/hr and NS TKO. He has dobhoff in place that we are awaiting xray read for placement from Noc shift when came out partially. He has 16Fr falk in place draining to gravity with light kandice colored urine. He has wound to right laertal foot that is being followed up by podiatry.
--- NOTE | 2020-03-30 09:31 | NUR ---
Patient tolerated meds well. Medicated with Ativan as well as gtt's continued. Dr Duval looked at briefly. RT in room currently. VSS, See EMR. No significant changes with patient. No neuro changes as well..
--- NOTE | 2020-03-30 11:30 | NUR ---
Patient continues to rest and Precedex and Versed brittany to be working well and keeping RR <30. Still no purposeful speech or movement and does not track. VSS, See EMR. Still no change in BIPAP 14/5 and FiO2 30% and sats >90%. Joyce has good output >100 ml/hr.
--- NOTE | 2020-03-30 13:30 | NUR ---
No significant changes with patient. he has been resting well without difficulties. Dr Duval stated Dobhoff ok placement and to restart TF and were restarted at 45ml/hr and she changes free water to 250 ml's Q6 Joyce continues to have good output >100 ml'/hr.
--- NOTE | 2020-03-30 15:30 | NUR ---
Patient has continued to rest without distress and Precedex remains at 1.4 mcg/kg/hr, and have titrated Versed to 2mg/hr and reamins at same sedation level. Still no neuro changes: no purposeful movement or speech and continues to stare and not track. he has not been moaning while resting. VSS, See EMR. BIPAP remains 14/5 FiO2 30% with sats >90%.
[2020-03-30 16:57] LABS: Vancomycin, Trough 20.1 ug/mL (5.0-10.0)
--- NOTE | 2020-03-30 18:36 | NUR ---
Patient started to arouse and medicated with 4mg Ativan rather than turning Versed back up. Dr Duval would like to keep versed down if possible. BIPAP 14/5 and 30% FiO2 and sats >90%. PICC DARIO infusing Precedex 1.4 mcg/kg/hr, Versed 2mg/hr, NS TKO. TF Glucerna 1.2 at 45ml/hr and 250 ml free water Q6, TF goal 70ml/hr. No neuro changes from last note.
--- NOTE | 2020-03-30 18:46 | NUR ---
Patient resting well, Was able to take mask off and do some oral care but with sedation was unable to follow direct commands. With the new addition to Fentanyl and lowering Precedex to 0.6 mcg/kg/hr.He continues on CPAP mode 12 and 80% Fio2 and sats 95%. He has Clinimix at 50ml/hr and fat emulsion at 25 ml/hr, Fentanyl MENTAL HEALTH AIDE at 100 mcg/hr and Precedex needs to be titraed down for effect. Joyce intact and patent.
--- NOTE | 2020-03-30 22:43 | NUR ---
ASSUMED CARE OF PT, REPORT RCV'D FROM KATARINA QUISPE. PT OPENS EYES TO STIMULUS, RESPONDS WITH SOUNDS, FAILS TO FOLLOW COMMANDS. BIPAP 14/5, 30%. VERSED GTT @ 4 MG/HR, PRECEDEX GTT @1.4 MCG/KG/HR. LUNG SOUNDS COARSE T/O. SEE FULL SHIFT ASSESSMENT.
[2020-03-31 03:43] LABS: BASOPHILS ABSOLUTE AUTO 0.02 K/mm3 (0.00-0.23); BASOPHILS PERCENT AUTO 0 % (0-2); EOSINOPHILS ABSOLUTE AUTO 0.79 K/mm3 (0.00-0.68); EOSINOPHILS PERCENT AUTO 7 % (0-6); Hematocrit 25.1 % (37.0-53.0); Hemoglobin 7.6 g/dL (13.5-17.5); IMMATURE GRAN ABSOLUTE AUTO 0.13 K/mm3 (0.00-0.10); IMMATURE GRAN PERCENT AUTO 1 % (0-1); LYMPHOCYTES ABSOLUTE AUTO 0.83 K/mm3 (0.84-5.20); LYMPHOCYTES PERCENT AUTO 7 % (21-46); MONOCYTES ABSOLUTE AUTO 0.99 K/mm3 (0.16-1.47); MONOCYTES PERCENT AUTO 9 % (4-13); Mean Corpuscular HGB 27.5 pg (26.0-34.0); Mean Corpuscular HGB Conc 30.3 g/dL (31.5-36.5); Mean Corpuscular Volume 91 fL (80-100); Mean Platelet Volume 9.8 fL (9.1-12.4); NEUTROPHILS ABSOLUTE AUTO 8.84 K/mm3 (1.96-9.15); NEUTROPHILS PERCENT AUTO 76 % (41-73); Platelet Count 266 K/mm3 (150-400); RDW Coefficient Variation 16.6 % (11.7-14.2); RDW Standard Deviation 56.2 fL (35.1-46.3); Red Blood Cell Count 2.76 M/mm3 (4.30-5.90)
[2020-03-31 03:59] LABS: Anion Gap 4 mmol/L (6-16); Blood Urea Nitrogen 18 mg/dL (8-24); Bun/Creatinine Ratio 26.2 (12.0-20.0); CO2, Blood 31 mmol/L (21-32); Calcium, Blood 9.1 mg/dL (8.5-10.1); Chloride, Blood 108 mmol/L (98-108); Creatinine, Blood 0.69 mg/dL (0.60-1.20); Glomerular Filtration Rate >60 (60-); Glucose, Blood 190 mg/dL (70-99); Magnesium, Blood 1.9 mg/dL (1.6-2.4); Phosphorus, Blood 3.1 mg/dL (2.5-4.9); Potassium, Blood 3.6 mmol/L (3.5-5.5); Sodium, Blood 143 mmol/L (136-145)
--- NOTE | 2020-03-31 05:50 | NUR ---
SHIFT SUMMARY PT REMAINS ON CPAP 26/09 30% WITH SATS>90%. PT REMAINS CONFUSED, THRASHES IN BED AND THROWS LEGS OFF BED. PT REMAINS IN 4 POINT SOFT RESTRAINTS TO PROTECT LINES/CORDS. DRESSING TO RIGHT FOOT CHANGED AND HEEL PROTECTORS PLACED. PT REPOSITIONED Q2H, PT MOVES OFTEN AND DOESN'T STAY REPOSITIONED LONG. VERSED INFUSING @4 MG/HR, PRECEDEX @1.4 MCG/KG/HR. WILL REPORT TO DAYSHIFT NURSE.
--- NOTE | 2020-03-31 08:00 | NUR ---
REPORT TAKEN FROM RN DALILA, ASSUMING PT CARE @ 0700. PT LAYING IN BED, BiPAP IN PLACE @ 14/5 W/ 30% FiO2. LS COARSE THROUGHOUT & NOTABLY DIMINISHED IN THE RLL. PT TACHYPEIC @ 45 WHICH IS UNCHANGED FROM REPORT RECEIVED FROM PREVIOUS RN. PT AWAKES TO HIS NAME, BUT QUICKLY RETURNS TO SLEEPING WHEN UNDISTURBED, DOES NOT TRACK STAFF AROUND THE ROOM. FAILS @ FOLLOWING COMMANDS. ABD SOFT, NONTENDER, DOBHOFF IN PLACE & INF; FLUSHES WELL. PICC IN PLACE TO RUE, 10CM EXPOSED, PREVIOUS DOCUMENTATION SHOWS 8cm EXPOSED, LINE FLUSHES & DRAWN W/OUT DIFF, DISCUSSED W/ KARISSA, PICC RN. WILL DISCUSS W/ DR AYALA DURING ROUNDS. DRESSING C/D/I; RECEIVING VERSED INF @4ml/hr, PRECEDEX @ 1.4mcg/kg/hr. CONTINUOUS PROPERTY APPRAISER INDICATES A SINUS RHYTHM IN THE 80s, BP STABLE BUT MODERATELY HYPERTENSIVE @ 178/75. WILL CONTINUE TO MONITOR.
--- NOTE | 2020-03-31 10:48 | NUR ---
BLAISEAY REVIEWED W/ DR AYALA, PICC IN GOOD POSITION & OK FOR USE.
--- NOTE | 2020-03-31 12:22 | NUR ---
DR AYALA @ BEDSIDE TO DISCUSS PT STATUS & FURTHER PLAN OF CARE W/ FAMILY. FAMILY STS THE PT WOULD NOT WANT THIS EXTENT OF INTERVENTIONS. COMFORT CARE DISCUSSED & FAMILY AGREES COMFORT CARE IS APPROPRIATE. DIGITAL MEDIA DIRECTORPRADIP ARRIVES @ BEDSIDE TO SPEAK W/ PT's SISTER. JAMIE TO PLACE ORDERS FOR COMFORT MEASURES.
--- NOTE | 2020-03-31 14:55 | NUR ---
pt placed on comfort measures afte family speaking with intesivist. Will remain available for symptom manament.
--- NOTE | 2020-03-31 17:21 | NUR ---
SHIFT SUMMARY: PT REMAINS ON COMFORT CARE, AWAITING MEDICAL FLOOR BED ASSIGNMENT. CONTINUE TO ATTEMPT TO MAKE PT COMFORTABLE. MEDICATED W/ ROXINOL, ATIVAN, & MORPHINE ORDERED. PRADIP & JOSE RN @ BEDSIDE. WILL CONTINUE TO MONITOR UNTIL REPORT TO ONCOMING RN OR UNTIL TRANSFER TO MEDICAL.
--- NOTE | 2020-03-31 17:44 | NUR ---
Spiritual care note: Spent time with Teo's sister Laurence. Listened to numerous stories about this remarkale man. When his 1 years ago, he began to drink more heavily. He also lost his only son. Laurence states that "he never would have wanted all this." Decision made for comfort care. Laurence responded well to theraputic listening and anticipatory bereavement domestic violence counselor. Prayer provided. Later, asked by RN to provide calm presence as Teo was breathing rapidly and non-responsive. Medications provided, but rapid breathing continued. Teo does not seem aware--eyes open, but not seeing.
--- NOTE | 2020-03-31 18:00 | NUR ---
pt remains radid and deep in his repirations physician notified.
--- NOTE | 2020-03-31 18:43 | NUR ---
pt continue to hypervenilate intesivist notified versed drip initiated for termeinal repitpry distress.
--- NOTE | 2020-03-31 19:46 | NUR ---
ASSUMED CARE OF PT, REPORT RCV'D FROM KATARINA PEOPLES. PT PLACED ON COMFORT CARE THIS AFTERNOON. PT TACHYPNEIC WITH SHALLOW BREATHING. EYES OPEN BUT NO PURPOSEFUL MOVEMENT OR VERBAL RESPONSE TO STIMULI. PT TREATED PER EMAR FOR AIR HUNGER AND ANXIETY. O2 SATS CURRENTLY 61%, HR 153, RR 43.
--- NOTE | 2020-03-31 21:42 | NUR ---
PT TIME OF 2057. DR. AYALA NOTIFIED. CALL TO PT'S SISTER BUTCH [employer] OF [employer] WILL BE CONTACTED AT SISTER'S REQUEST. CALL TO DONOR LINE, FAXED H&P AND PROGRESS NOTES FAXED REQUESTED. REQUEST FROM DONOR LINE (JANE) TO NOT RELEASE BODY UNTIL THEY REVIEW PT'S CHART.
--- NOTE | 2020-03-31 22:19 | NUR ---
DONOR LINE CALLED, REQUESTING ADDITIONAL INFORMATION. DONOR LINE WILL CALL PT'S NEXT OF KIN. REQUEST TO CONTINUE HOLDING PT AND PLACE ICE OVER EYES.
--- NOTE | 2020-04-01 00:58 | NUR ---
DONOR LINE RELEASED BODY FOR IMPACT HAMMER OPERATOR. POSSIBLE TISSUE DONATION. CALLED [facility] PER FAMILY REQUEST.
--- NOTE | 2020-04-01 02:42 | NUR ---
[employer] [employer] [facility] HERE
--- NOTE | 2020-04-01 02:42 | NUR ---
0240 AUGUSTO FROM [facility] ASSUMED CARE OF PT'S BODY. PT'S BELONGINGS SENT WITH AUGUSTO.
== END 2020-03-31 20:58 | DRG 682 ==
LOC: ER 10:59 → ICUW 15:03
PROVIDERS: Emergency Medicine; Internal Medicine Critical Care Medicine; Internal Medicine Nephrology; Internal Medicine Pulmonary Disease; Pharmacist; ADMIT Internal Medicine
PROC: 5A09357 Assistance with Respiratory Ventilation, Less than 24 Consecutive Hours, Continuous Positive Airway Pressure (ICD-10-PCS; principal; 2020-03-28)
PROC: 02HV33Z Insertion of Infusion Device into Superior Vena Cava, Percutaneous Approach (ICD-10-PCS; 2020-03-30)
DX: N17.9 Acute kidney failure, unspecified (principal); G93.41 Metabolic encephalopathy; J15.212 Pneumonia due to Methicillin resistant Staphylococcus aureus; J96.01 Acute respiratory failure with hypoxia; E87.2 Acidosis; E87.0 Hyperosmolality and hypernatremia; F10.239 Alcohol dependence with withdrawal, unspecified; D62 Acute posthemorrhagic anemia; Z20.828 Contact with and (suspected) exposure to other viral communicable diseases; Z79.82 Long term (current) use of aspirin; Z51.5 Encounter for palliative care; Z79.4 Long term (current) use of insulin; E87.5 Hyperkalemia; I25.2 Old myocardial infarction; I25.10 Atherosclerotic heart disease of native coronary artery without angina pectoris; Z89.411 Acquired absence of right great toe; Z96.653 Presence of artificial knee joint, bilateral; E11.51 Type 2 diabetes mellitus with diabetic peripheral angiopathy without gangrene; Z66 Do not resuscitate; E11.22 Type 2 diabetes mellitus with diabetic chronic kidney disease; E03.9 Hypothyroidism, unspecified; E66.9 Obesity, unspecified; E88.09 Other disorders of plasma-protein metabolism, not elsewhere classified; E83.39 Other disorders of phosphorus metabolism; E11.621 Type 2 diabetes mellitus with foot ulcer; Z78.1 Physical restraint status; D63.1 Anemia in chronic kidney disease; Z68.35 Body mass index [BMI] 35.0-35.9, adult; F17.200 Nicotine dependence, unspecified, uncomplicated; N18.9 Chronic kidney disease, unspecified; L97.519 Non-pressure chronic ulcer of other part of right foot with unspecified severity
CPT/HCPCS: 0202U; 36415; 36569; 51702; 70450; 71045; 73620; 74018; 76770; 80048; 80053; 80069; 80076; 80202; 81001; 82140; 82374; 82550; 82803; 82947; 83605; 83735; 84100; 84132; 84295; 84443; 85014; 85018; 85025; 85651; 86141; 87040; 87070; 87077; 87147; 87186; 87205; 93005; 93010; 94640; 94660; 94760; 96361-59; 96365-59; 96375-59; 99285-25; A9270-GY; C1751; C1894; G0480; J0295; J0610; J0881; J1630; J1644; J1650; J1940; J2060; J2250; J2270; J2405; J3370; J3411; J3475; J7030; J7042; J7050; J7060; J7070